=== PATIENT | female | born 1940 | race Caucasian/White ===

== ENCOUNTER 2019-09-07 16:29 | Inpatient (IN) ==
--- NOTE | 2019-09-07 17:02 | Emergency Department Note ---
Abdominal Pain HPI - General Chief Complaint: Abdominal Pain Stated Complaint: left upper abd pain Time Seen by Provider: 09/07/19 16:33 Source: patient Mode of arrival: ambulatory Limitations: no limitations - History of Present Illness HPI Narrative: 79-year-old female presents with left upper abdominal pain. Onset about 48 hours ago. She was seen here in the ER last night had an elevated lipase in the high 300s and was diagnosed with pancreatitis. She went home on clear liquids that she did not want to be admitted. States her pain is worse. And vomiting but no diarrhea. States she really has no appetite so she has not had much of anything. States she returns tonight because her pain is just getting worse instead of better. No fever or chills. No blood in her stool or emesis. - Related Data Home Medications Medication Instructions Recorded Confirmed Aspirin EC 81 mg PO DAILY 09/06/19 09/06/19 Atorvastatin [Lipitor] 20 mg PO DAILY 09/06/19 09/06/19 Celecoxib 200 mg PO BID 09/06/19 09/06/19 Escitalopram [Lexapro] 20 mg PO DAILY 09/06/19 09/06/19 Estradiol [Estrace] 1 mg PO DAILY 09/06/19 09/06/19 Levothyroxine [Synthroid] 100 mcg PO DAILY 09/06/19 09/06/19 Montelukast [Singular] 10 mg PO DAILY 09/06/19 09/06/19 Omeprazole [PriLOSEC] 20 mg PO DAILY PRN 09/06/19 09/06/19 amLODIPine [Norvasc] 5 mg PO DAILY 09/06/19 09/06/19 sitaGLIPtin PHOS/metFORMIN HCL 1 each PO QDAY 09/06/19 09/06/19 [Janumet Xr 50-500 mg Tablet] traZODone HCL [Trazodone HCl] 100 mg PO PRN PRN 09/06/19 09/06/19 Previous Rx's Medication Instructions Recorded traMADol [Ultram] 50 mg PO Q6HP PRN #10 tab 09/06/19 Allergies Allergy/AdvReac Type Severity Reaction Status Date / Time Sulfa (Sulfonamide AdvReac Intermediate RASH Verified 09/07/19 16:32 Antibiotics) [SULFA (SULFONAMIDE ANTIBIOTICS)] hydrocodone [HYDROCODONE] AdvReac Mild VOMITING Verified 09/07/19 16:32 Review of Systems All systems ED: reviewed and negative except as stated. Abdominal Pain PMH - Past Medical History Medical history: Reports: arthritis, DM, hyperlipidemia, hypertension Family history: Reports: no significant family history - Social History Smoking status: Never smoker Alcohol use: Reports: None Drug use: Reports: none Physical Exam Limitations: no limitations General appearance: alert, other (Extremely hard of hearing) Head: atraumatic, normocephalic, normal inspection Eye: Present: normal appearance. Absent: conjunctival injection ENT: Present: mucous membranes moist Chest: Present: symmetric chest wall rise Respiratory: Present: normal lung sounds bilaterally. Absent: respiratory distress, rales/crackles, wheezes, accessory muscle use Cardiovascular: Present: regular rate, normal heart sounds Abdominal: Present: soft, tenderness (Left upper quadrant), guarding (Left upper quadrant), normal bowel sounds. Absent: distention, rebound, rigidity, mass Extremities: Present: normal inspection Back: Absent: CVA tenderness (R), CVA tenderness (L) Neurological: Present: alert, oriented X3 Psychiatric: Present: normal affect, normal mood Skin: Present: warm, dry, intact, normal color. Absent: rash, hives, cyanosis, diaphoresis Course Course Narrative: @ [address] Avelar agrees to accept this patient. Vital Signs Temperature 98.0 F 09/07/19 16:29 Pulse Rate 88 09/07/19 16:29 Respiratory Rate 18 09/07/19 16:29 Blood Pressure 154/81 09/07/19 16:29 Pulse Oximetry (%) 97 09/07/19 16:29 Temperature 98.0 F 09/07/19 16:29 Pulse Rate 79 09/07/19 20:31 Respiratory Rate 18 09/07/19 16:29 Blood Pressure 142/88 09/07/19 20:31 Pulse Oximetry (%) 91 09/07/19 20:31 Abdominal Pain - Medical Records Medical records reviewed: Yes I reviewed the patient's medical records. - Lab Data Lab results reviewed: Yes I reviewed the patient's lab results. Result diagrams: 09/07/19 16:50 09/07/19 16:50 Lab Results 09/07/19 09/07/19 Range/Units 16:50 16:50 WBC 12.3 H (4.5-11.0) K/mcL RBC 5.04 (4.00-5.20) M/mcL Hgb 14.4 (12.0-15.0) g/dL Hct 43.9 (36.0-48.0) % MCV 87.1 (80.0-100.0) fL MCH 28.6 (26.0-34.0) pg MCHC 32.8 (31.0-36.0) g/dL RDW 13.5 (11.5-14.5) % Plt Count 227 (140-440) K/mcL MPV 11.4 H (7.4-10.4) fL Gran % 75.1 (38.0-78.0) % Lymph % (Auto) 16.2 (15.5-49.0) % [place] % (Auto) 7.6 (1.0-12.0) % Eos % (Auto) 0.7 (0.0-7.0) % Baso % (Auto) 0.4 (0.0-2.0) % Gran # 9.2 H (1.8-8.0) K/mcL Lymph # (Auto) 2.0 (1.5-4.8) K/mcL [place] # (Auto) 0.9 (0.1-0.9) K/mcL Eos # (Auto) 0.1 (0.0-0.7) K/mcL Baso # (Auto) 0.1 (0.0-0.3) K/mcL Sodium 134 (133-145) mmol/L Potassium 3.1 L (3.3-5.1) mmol/L Chloride 97 (96-108) mmol/L Carbon Dioxide 20 L (22-30) mmol/L Anion Gap 17.0 H (8-16) BUN 11 (8-23) mg/dl Creatinine 0.7 (0.6-1.1) mg/dl GFR Calculation 81 Glucose 152 H (70-105) mg/dL Calcium 8.8 (8.6-10.4) mg/dl Total Bilirubin 1.0 (0.0-1.0) mg/dL AST 12 (0-37) U/l ALT 10 (0-40) U/l Alkaline Phosphatase 84 (39-117) U/L Total Protein 7.2 (5.9-8.4) gm/dL Albumin 3.7 (3.2-5.2) gm/dL Globulin 3.5 (2.2-3.7) gm/dL Albumin/Globulin Ratio 1.1 (1.0-2.3) Amylase 209 H (28-100) U/L Lipase 156 H (7-60) U/L - Radiology Data Radiology results reviewed: Yes I reviewed the patient's radiology results. Disposition Pt seen by WRECK[facility] OPERATOR/PA only: Yes Clinical Impression: Pancreatitis, Abdominal pain Disposition: Xfer As Outpt/Obs ([facility]) Condition: Fair Referrals: Rakan Pham MD [Primary Care Provider] - Time of Disposition: 21:23
[2019-09-07] MEDS ORDERED: HYDROmorphone 2 MG/ML VIAL IV PRN ×2 (17:03→22:06)
[2019-09-07] MEDS ORDERED: ONDANSETRON 4 MG/2 ML VIAL IV ONE (17:03)
[2019-09-07] MEDS: 0.9 % SODIUM CHLORIDE 1,000 ML IV SCH ×3 (17:04→21:00)
[2019-09-07 17:45] LABS: Basophils # (Auto) 0.1 K/mcL (0.0-0.3); Basophils % (Auto) 0.4 % (0.0-2.0); Eosinophils # (Auto) 0.1 K/mcL (0.0-0.7); Eosinophils % (Auto) 0.7 % (0.0-7.0); Granulocytes % (Auto) 75.1 % (38.0-78.0); Hematocrit 43.9 % (36.0-48.0); Hemoglobin 14.4 g/dL (12.0-15.0); Lymphocytes % (Auto) 16.2 % (15.5-49.0); Mean Cell Volume 87.1 fL (80.0-100.0); Mean Corpuscular HGB Conc 32.8 g/dL (31.0-36.0); Mean Platelet Volume 11.4 fL (7.4-10.4); Monocytes # (Auto) 0.9 K/mcL (0.1-0.9); Monocytes % (Auto) 7.6 % (1.0-12.0); Platelet Count 227 K/mcL (140-440); RBC 5.04 M/mcL (4.00-5.20); Red Cell Distribution Width 13.5 % (11.5-14.5); WBC 12.3 K/mcL (4.5-11.0)
[2019-09-07 18:05] LABS: ALT/SGPT 10 U/l (0-40); AST/SGOT 12 U/l (0-37); Albumin 3.7 gm/dL (3.2-5.2); Albumin/Globulin Ratio 1.1 (1.0-2.3); Alkaline Phosphatase 84 U/L (39-117); Amylase 209 U/L (28-100); Blood Urea Nitrogen 11 mg/dl (8-23); Calcium 8.8 mg/dl (8.6-10.4); Carbon Dioxide 20 mmol/L (22-30); Chloride 97 mmol/L (96-108); Globulin 3.5 gm/dL (2.2-3.7); Glomerular Filtration Rate 81; Glucose 152 mg/dL (70-105)
--- NOTE | 2019-09-07 18:12 | Ultrasound Report ---
CLINICAL INFORMATION: Left upper quadrant pain TECHNIQUE: Grayscale and color flow Doppler spectral imaging COMPARISON: None. FINDINGS: Negative gallbladder. No cholelithiasis. No gallbladder wall thickening or pericholecystic fluid. No dilated bile ducts. Common bile duct measures 4 mm. Liver is negative. No focal intrahepatic abnormalities. The liver may be mildly echogenic. Liver contour is smooth. Visualized portions of the pancreas are negative. Spleen is not evaluated. Normal hepatopedal portal venous flow. Right kidney measures 9.6 x 5.2 x 4.4 cm. There is a 9 mm lower pole cyst. No solid mass. No hydronephrosis. IMPRESSION: Negative limited abdominal ultrasound Interpreted and Authenticated by: Des Thomas 09/07/19
--- NOTE | 2019-09-07 21:37 | Cat Scan Report ---
CLINICAL INFORMATION: Left upper quadrant pain. Elevated white blood cell count COMPARISON: None. TECHNIQUE: Axial images were obtained through the abdomen and pelvis. Sagittally and coronally reformatted images. 80 mL Isovue 370 injected intravenously. Oral contrast material is given FINDINGS: Lung bases:12 mm mass at the right lung base. This may be focal atelectasis but is suspicious for malignancy. Routine chest CT scan is recommended to evaluate for other pulmonary parenchymal nodules. Short-term follow-up examination will also be appropriate. There is no pleural fluid. No pericardial fluid There is atherosclerotic disease with coronary artery calcification Liver:Negative. No focal mass. Liver contour is smooth. There is no evidence for cirrhosis. Gallbladder, billary:No calcified gallstones. No dilated bile ducts. Common bile measures 4 mm Spleen:Low-density lesion consistent with chronic infarction. Spleen is otherwise negative. No splenomegaly. Normal enhancement of the splenic and portal vein Pancreas:There is infiltration of the peripancreatic fat consistent with edema. Pancreas is atrophic. No pancreatic mass. No duct dilatation. Appearance is consistent with pancreatitis. Correlation with serum enzymes recommended. There is no pseudocyst. No abscess. Adrenal glands:Negative Kidneys, ureters, bladder:There are small renal cysts. No solid renal mass. There is no hydronephrosis. There is no hydroureter. No bladder calculi Gastrointestinal:There is sigmoid diverticulosis. No evidence for diverticulitis. No colonic mass identified. Appendix is negative. Small bowel is negative. Vascular:There is calcification of the abdominal aorta. No abdominal aortic aneurysm there is calcification at the origin of the celiac trunk and superior mesenteric artery. There is probable stenosis. Lymphatic:No retroperitoneal adenopathy. No mesenteric adenopathy Mesentery, peritoneum:No free intraperitoneal fluid. No intra-abdominal abscess. No pneumoperitoneum Reproductive:Uterus is not visualized and has probably been removed. No adnexal mass Musculoskeletal:There is degenerative disc disease in the lower lumbar spine. No compression fractures. No sacral or pelvic fracture. Hips are negative. No abdominal wall or inguinal hernia Examination was initially interpreted by [facility] IMPRESSION: 1. 12 mm mass at the right lung base. Recommend chest CT scan and follow-up examination. 2. Infiltration of peripancreatic fat consistent with pancreatitis. No pseudocyst or abscess. No pancreatic mass 3. Atherosclerotic disease. 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 Sigmoid diverticulosis. No evidence for diverticulitis The exam was performed using radiation dose optimization techniques including, but not limited to, automated exposure control, adjustment of the mA and/or kV according to patient size and use of iterative reconstruction technique. Interpreted and Authenticated by: Des Thomas 09/07/19
--- NOTE | 2019-09-07 22:02 | Internal Med History&Physical ---
Medical - H&P: HPI Patient information: Note initiated : 09/07/19 at 10:00 pm Service Date, if different from initiated Date: [] Patient: Blossom Craig 79 y/o F admitted on for left upper abd pain. Chief Complaint: [] History of present illness: This is an 79-year-old female with a history of essential hypertension, diabetes, hyperlipidemia, chronic pain was brought to the ER because of severe abdominal pain. She was evaluated in the ER her lab work-up was unremarkable except lipase elevated around 200 at the upper limit of 60 and she has severe epigastric tenderness on examination underwent CT scan which was unremarkable for an acute findings and she also had a history of nausea and 1 episode of vomiting. No fever no chills no chest pain. Discussed with her this morning about admitting but patient want to be discharged home went home continued having severe pain and was brought her back to the ER. The second time she underwent an ultrasound which was unremarkable for any acute gallbladder patho logy. Patient reported drinking more than unusual amount of wine during the last few days and especially on . She also takes Janumet which can also cause pancreatitis. She also takes estradiol and celecoxib both can cause pancreatitis. Discussed with the patient and we will get RID OFF these 3 medicines and she agreed stop drinking alcohol. - Constitutional Constitutional: Present: anorexia, chills, lethargy, malaise, weakness - Cardiovascular Cardiovascular: Absent: chest pain, chest pain at rest, chest pain with activity, claudication, diaphoresis, dyspnea, dyspnea on exertion, edema - Respiratory Respiratory: Absent: cough, dyspnea, hemoptysis, dyspnea on exertion, wheezing, snoring - Gastrointestinal Gastrointestinal: Present: abdominal pain, belching, bloating, change in bowel habits, dyspepsia. Absent: change in stool character, coffee ground emesis, constipation, diarrhea - Genitourinary Genitourinary: Absent: dysuria, flank pain, genital lesions, genital pruritis - Neurological Neurological: Absent: disequilibrium, dizziness, focal weakness, frequent falls, headache(s) - Psychiatric Psychiatric: Absent: anhedonia, anxiety, auditory hallucinations, behavioral changes, change in appetite, change in libido Medical - H&P: PMH Medical history: Essential hypertension Diabetes Hyperlipidemia Thyroid surgery Surgical history: Thyroidectomy Uterine fibroid and hysterectomy Social history: Social History No Social History Section defined History of alcoholism-more than usual according to the family and patient No history of smoking or any other recreational drugs Medical - H&P: Meds Home Medications Medication Instructions Recorded Confirmed Type Aspirin EC 81 mg PO DAILY 09/06/19 09/07/19 History Atorvastatin [Lipitor] 20 mg PO DAILY 09/06/19 09/07/19 History Celecoxib 200 mg PO BID 09/06/19 09/07/19 History Escitalopram [Lexapro] 20 mg PO DAILY 09/06/19 09/07/19 History Estradiol [Estrace] 1 mg PO DAILY 09/06/19 09/07/19 History Levothyroxine [Synthroid] 100 mcg PO DAILY 09/06/19 09/07/19 History Montelukast [Singular] 10 mg PO DAILY 09/06/19 09/07/19 History Omeprazole [PriLOSEC] 20 mg PO DAILY PRN 09/06/19 09/07/19 History amLODIPine [Norvasc] 5 mg PO DAILY 09/06/19 09/07/19 History sitaGLIPtin PHOS/metFORMIN HCL 1 each PO QDAY 09/06/19 09/07/19 History [Janumet Xr 50-500 mg Tablet] traMADol [Ultram] 50 mg PO Q6HP PRN #10 tab 09/06/19 09/07/19 Rx traZODone HCL [Trazodone HCl] 100 mg PO PRN PRN 09/06/19 09/07/19 History Vitamin D3 1 tab PO QDAY 09/07/19 09/07/19 History Allergies Allergy/AdvReac Type Severity Reaction Status Date / Time Sulfa (Sulfonamide AdvReac Intermediate RASH Verified 09/07/19 16:32 Antibiotics) [SULFA (SULFONAMIDE ANTIBIOTICS)] hydrocodone [HYDROCODONE] AdvReac Mild VOMITING Verified 09/07/19 16:32 Medical - H&P: Exam - Constitutional Vitals: Temp Pulse Resp BP Pulse Ox 98.0 F 88 16 140/85 98 09/07/19 16:29 09/07/19 21:52 09/07/19 21:52 09/07/19 21:52 09/07/19 21:52 General appearance: cooperative, moderate distress, obese - Head Head exam: Present: atraumatic, normal inspection - Expanded Head Exam Head exam: Absent: abrasion, Fish's sign, contusion - Eye Eye exam: Absent: conjunctival injection, nystagmus, periorbital swelling - ENT ENT exam: Present: mucous membranes dry, normal exam, normal external ear exam - Expanded ENT Exam Ear exam: Absent: auricular hematoma, auricular trauma, external canal tenderness - Neck Neck exam: Present: full ROM. Absent: lymphadenopathy, meningismus - Respiratory Respiratory exam: Present: normal respiratory exam, accessory muscle use - Cardiovascular Cardiovascular exam: Present: normal rate and rhythm - GI/Abdominal GI/Abdominal exam: Present: normal bowel sounds, distended, tenderness (Severe epigastric tenderness) - Neurological Exam Neurological exam: Present: alert, oriented X3. Absent: abnormal gait, motor sensory deficit Medical - H&P: Reslt - Labs CBC & Chem 7: 09/07/19 16:50 09/07/19 16:50 Labs: Short CBC 09/07/19 Range/Units 16:50 WBC 12.3 H (4.5-11.0) K/mcL Hgb 14.4 (12.0-15.0) g/dL Hct 43.9 (36.0-48.0) % Plt Count 227 (140-440) K/mcL BMP 09/07/19 16:50 Sodium 134 Potassium 3.1 L Chloride 97 Carbon Dioxide 20 L BUN 11 Creatinine 0.7 Glucose 152 H Calcium 8.8 Liver Function 09/07/19 Range/Units 16:50 Total Bilirubin 1.0 (0.0-1.0) mg/dL AST 12 (0-37) U/l ALT 10 (0-40) U/l Alkaline Phosphatase 84 (39-117) U/L Albumin 3.7 (3.2-5.2) gm/dL Medical - H&P: A/P - Narrative A/P Narrative: Acute pancreatitis probable alcohol and/or medication induced Patient was on Janumet, celecoxib and estradiol can precipitate pancreatitis Patient is also drinking more than usual amount of wine with the and season Plan n.p.o. and will start on clear liquid diet Pain management with morphine 1 mg every 2 hours IV fluid lactated Ringer's 100 mils per hour Type 2 diabetes We will monitor her blood glucose Sliding scale insulin We will stop the Janumet and will continue the metformin alone Check A1c level Essential hypertension Continue amlodipine Alcoholism Patient drinks wine more than unusual sometimes Patient agreed to stop alcohol completely DVT prophylaxis-subcu heparin CODE STATUS-full code Expected length of stay-1-2 midnights
[2019-09-07] MEDS ORDERED: ONDANSETRON 4 MG/2 ML VIAL IV PRN (22:06)
[2019-09-07] MEDS ORDERED: traZODone HCL 50 MG TABLET PO PRN (22:06)
[2019-09-07] MEDS: LACTATED RINGERS 1,000 ML IV SCH (22:24)
[2019-09-07 22:47] LABS: C-Reactive Protein 9.7 mg/dl (0.0-0.8)
[2019-09-07] MEDS ORDERED: traZODone HCL 50 MG TABLET ONE (23:24)
[2019-09-08 01:01] LABS: Hemoglobin A1C 6.6 % HGB (4.0-6.0)
[2019-09-08] MEDS ORDERED: HYDROmorphone 2 MG/ML VIAL ONE (04:32)
[2019-09-08 05:33] LABS: Basophils # (Auto) 0 K/mcL (0.0-0.3); Basophils % (Auto) 0.2 % (0.0-2.0); Eosinophils # (Auto) 0.2 K/mcL (0.0-0.7); Eosinophils % (Auto) 1.4 % (0.0-7.0); Granulocytes % (Auto) 75.2 % (38.0-78.0); Hematocrit 42.4 % (36.0-48.0); Hemoglobin 13.6 g/dL (12.0-15.0); Lymphocytes # (Auto) 2.1 K/mcL (1.5-4.8); Lymphocytes % (Auto) 15.1 % (15.5-49.0); Mean Cell Volume 88.3 fL (80.0-100.0); Mean Corpuscular HGB Conc 32.2 g/dL (31.0-36.0); Mean Platelet Volume 11.2 fL (7.4-10.4); Monocytes # (Auto) 1.1 K/mcL (0.1-0.9); Monocytes % (Auto) 8.1 % (1.0-12.0); Platelet Count 216 K/mcL (140-440); Red Cell Distribution Width 13.9 % (11.5-14.5); WBC 13.7 K/mcL (4.5-11.0)
[2019-09-08] MEDS: 0.9 % SODIUM CHLORIDE 10 ML SYRINGE IV SCH ×3 (06:12→22:04)
[2019-09-08] MEDS: LACTATED RINGERS 1,000 ML IV SCH ×2 (08:27→19:20)
[2019-09-08] MEDS: HEPARIN 5,000 UNIT/ML VIAL SQ SCH ×2 (08:27→22:04)
[2019-09-08] MEDS: DOCUSATE SODIUM 100 MG CAPSULE PO SCH ×2 (08:28→22:04)
[2019-09-08] MEDS: HYDROmorphone 2 MG/ML VIAL IV PRN ×4 (10:49→23:48)
[2019-09-08] MEDS: POTASSIUM CHLORIDE 20 MEQ TABLET PO SCH ×2 (10:50→17:47)
--- NOTE | 2019-09-08 20:17 | Internal Med Progress Note ---
Medical - PN: Subj Patient information: Note initiated : 09/08/19 at 8:16 pm Service Date, if different from initiated Date: [] Patient: Blossom Craig 79 y/o F admitted on 09/07/19 for left upper abd pain. Chief Complaint: [] Interval history: This is an 79-year-old female admitted with acute pancreatitis possibly precipitated by alcohol and/or her medications. She was kept on n.p.o. and advance her to clear liquid diet her pain is controlled with the Dilaudid IV electrolytes has been monitored IV fluid resuscitation with LR 1216-patient's case scenario has been discussed with the family son and explained to them about the possible delayed complication and's recurrence of pancreatitis. I strongly recommend them to stop Januvia and we can continue the Metformin alone as her A1c is 6.6. I strongly recommend stop celecoxib as well. Patient is on estradiol which can rarely cause pancreatitis but this can be reconsidered when she is improved. Pertinent ROS: Review of systems General-in distress due to pain Abdomen-continued having nausea and pain Respiratory-no shortness of breath no cough CVS-no chest pain - Constitutional Vitals: Vital Signs Temp Pulse Resp BP Pulse Ox 99.7 F H 87 18 138/63 91 09/08/19 16:00 09/08/19 16:00 09/08/19 16:00 09/08/19 16:00 09/08/19 16:00 Period Temp Pulse Resp BP Sys/Barba Pulse Ox Last 24 Hr 97.4 F-99.7 F 77-88 16-18 138-169/63-88 91-98 Intake and Output 09/08/19 09/08/19 09/08/19 05:59 13:59 21:59 Intake Total 100 1120 1100 Output Total 700 400 Balance -710 881 1801 Weight 153 lb 153 lb Patient Weight 09/09/19 05:59 Weight 153 lb Intake & Output: Intake & Output 09/08/19 09/08/19 09/08/19 05:59 13:59 21:59 Intake Total 100 1120 1100 Output Total 700 400 Balance -595 153 7375 Weight 153 lb 153 lb Intake: IV 1000 1000 Lactated Ringers 1,000 ml @ 100 1000 1000 mls/hr IV .Q10H PRIYA Rx#: [id number] Oral 100 120 100 Output: Void Amount 700 400 Other: Meal Breakfast Percent of Meal Consumed 75% Feeding Ability Independent Urine Appearance Clear Clear Urine Color Bright Yellow Bright Yellow Stool Size Moderate Stool Color Brown Stool Consistency Loose # Bowel Movements 1 - Head Head exam: Present: atraumatic, normal inspection, normocephalic - Eye Eye exam: Present: normal appearance Pupils: Absent: fixed, irregular - ENT ENT exam: Present: mucous membranes dry, normal exam - Respiratory Respiratory exam: Present: normal respiratory exam. Absent: accessory muscle use, chest wall tenderness, decreased breath sounds - Cardiovascular Cardiovascular exam: Present: normal rate and rhythm. Absent: bradycardia, clicks, diastolic murmur, gallop - GI/Abdominal GI/Abdominal exam: Present: tenderness. Absent: bruit, diminished bowel sounds, mass, organomegaly - Neurological Exam Neurological exam: Present: alert, CN II-XII intact, oriented X3, reflexes normal. Absent: motor sensory deficit Medical - PN: Obj Da - Labs CBC & Chem 7: 09/08/19 04:00 09/07/19 16:50 Labs: Abnormal Lab Results 09/08/19 09/07/19 09/07/19 04:00 16:50 16:50 WBC 13.7 H MPV 11.2 H Lymph % (Auto) 15.1 L Gran # 10.3 H [place] # (Auto) 1.1 H Potassium 3.1 L Carbon Dioxide 20 L Anion Gap 17.0 H Glucose 152 H Hemoglobin A1c 6.6 H C-Reactive Protein 9.7 H Amylase 209 H Lipase 156 H 09/07/19 16:50 WBC 12.3 H MPV 11.4 H Lymph % (Auto) Gran # 9.2 H [place] # (Auto) Potassium Carbon Dioxide Anion Gap Glucose Hemoglobin A1c C-Reactive Protein Amylase Lipase Meds: Medications Docusate Sodium (Colace) 100 mg PO BID [facility] Last Admin: 09/08/19 08:28 Dose: 100 mg Documented by: Heparin Sodium (Porcine) (Heparin) 5,000 unit SQ Q12 [facility] Last Admin: 09/08/19 08:27 Dose: 5,000 unit Documented by: Hydromorphone HCl (Dilaudid) 0.25 mg IV Q2HP PRN; Protocol PRN Reason: Per Pain Protocol Last Admin: 09/08/19 15:51 Dose: 0.25 mg Documented by: Lactated Ringer's (Lactated Ringers) 1,000 mls @ 100 mls/hr IV .Q10H PRIYA Last Admin: 09/08/19 19:20 Dose: 100 mls/hr Documented by: Ondansetron HCl (Zofran) 4 mg IV Q6HP PRN PRN Reason: Nausea And Vomiting Potassium Chloride (Kdur) 40 meq PO BIDCC PRIYA Stop: 09/09/19 17:31 Last Admin: 09/08/19 17:47 Dose: 40 meq Documented by: Senna (Senokot) 2 tab PO HS PRIYA Sodium Chloride (Saline Flush) 10 ml IV Q8 PRIYA Last Admin: 09/08/19 15:51 Dose: 10 ml Documented by: Trazodone HCl (Desyrel) 25 mg PO HSP PRN PRN Reason: Insomnia Last Admin: 09/07/19 23:26 Dose: 25 mg Documented by: Medical - PN: A/P - Time Spent With Patient Total time spent is greater than 50% in coordination of care (as documented) at patient's floor/unit and/or counseling patient: - Narrative A/P Narrative: Acute pancreatitis probable alcohol and/or medication induced Patient was on Janumet, celecoxib and estradiol can precipitate pancreatitis Patient is also drinking more than usual amount of wine with the and season Advance her to clear liquid diet and will advance to full liquid if she continues to improve Pain management with Dilaudid IV fluid resuscitation lactated Ringer Type 2 diabetes We will monitor her blood glucose Sliding scale insulin We will stop the Janumet and will continue the metformin alone A1c level 6.6 and I think her diabetes can be managed with metformin alone and follow-up with the primary care Essential hypertension Continue amlodipine Alcoholism Patient drinks wine more than unusual sometimes Patient agreed to stop alcohol completely DVT prophylaxis-subcu heparin CODE STATUS-full code Expected length of stay-1 midnights
[2019-09-08] MEDS: SENNOSIDES 1 TABLET PO SCH (22:04)
[2019-09-09] MEDS: HYDROmorphone 2 MG/ML VIAL IV PRN ×8 (01:58→22:28)
[2019-09-09] MEDS: LACTATED RINGERS 1,000 ML IV SCH ×3 (04:53→23:16)
[2019-09-09] MEDS: POTASSIUM CHLORIDE 20 MEQ TABLET PO SCH ×2 (08:39→17:26)
[2019-09-09] MEDS: DOCUSATE SODIUM 100 MG CAPSULE PO SCH ×2 (08:39→21:18)
[2019-09-09] MEDS: HEPARIN 5,000 UNIT/ML VIAL SQ SCH ×2 (08:39→21:18)
[2019-09-09] MEDS: 0.9 % SODIUM CHLORIDE 10 ML SYRINGE IV SCH ×3 (08:40→21:19)
--- NOTE | 2019-09-09 09:38 | Internal Med Progress Note ---
Medical - PN: Subj Patient information: Note initiated : 09/09/19 at 9:36 am Service Date, if different from initiated Date: [] Patient: Blossom Craig 79 y/o F admitted on 09/07/19 for left upper abd pain. Chief Complaint: [] Interval history: This is an 79-year-old female admitted with acute pancreatitis possibly precipitated by alcohol and/or her medications. She was kept on n.p.o. and advance her to clear liquid diet her pain is controlled with the Dilaudid IV electrolytes has been monitored IV fluid resuscitation with LR 09/08-patient's case scenario has been discussed with the family son and explained to them about the possible delayed complication and's recurrence of pancreatitis. I strongly recommend them to stop Januvia and we can continue the Metformin alone as her A1c is 6.6. I strongly recommend stop celecoxib as well. Patient is on estradiol which can rarely cause pancreatitis but this can be reconsidered when she is improved 09/09 -she continued having pain especially when she ate so we will keep her on full liquid diet and continue IV pain medicine and will start her on tramadol 50 every 8 hourly. Starting her on sliding scale insulin Pertinent ROS: Review of systems General-in distress due to pain Abdomen-continued having nausea and pain Respiratory-no shortness of breath no cough CVS-no chest pain - Constitutional Vitals: Vital Signs Temp Pulse Resp BP Pulse Ox 97.9 F 89 16 137/64 92 09/09/19 04:53 09/09/19 04:53 09/09/19 04:53 09/09/19 04:53 09/09/19 04:53 Period Temp Pulse Resp BP Sys/Barba Pulse Ox Last 24 Hr 97.4 F-99.7 F 77-89 16-18 137-150/63-74 90-94 Intake and Output 09/08/19 09/09/19 09/09/19 21:59 05:59 13:59 Intake Total 1460 1405 Output Total 1100 Balance 1460 305 Weight 160 lb Intake & Output: Intake & Output 09/08/19 09/09/19 09/09/19 21:59 05:59 13:59 Intake Total 1460 1405 Output Total 1100 Balance 1460 305 Weight 160 lb Intake: IV 1000 955 Lactated Ringers 1,000 ml @ 100 1000 955 mls/hr IV .Q10H [facility] Rx#: [id number] Oral 460 450 Output: Void Amount 1100 Other: Meal Dinner Percent of Meal Consumed 50% Feeding Ability Independent Urine Appearance Clear Urine Color Dark Yellow Urine Odor Normal - Head Head exam: Present: atraumatic, normal inspection - Eye Eye exam: Present: conjunctival injection. Absent: nystagmus - ENT ENT exam: Present: mucous membranes dry - Neck Neck exam: Present: normal inspection. Absent: lymphadenopathy - Respiratory Respiratory exam: Present: normal respiratory exam, decreased breath sounds. Absent: accessory muscle use, chest wall tenderness, respiratory distress - Cardiovascular Cardiovascular exam: Present: normal rate and rhythm. Absent: bradycardia, diastolic murmur, gallop - GI/Abdominal GI/Abdominal exam: Present: normal bowel sounds, distended, rebound, tenderness - Neurological Exam Neurological exam: Present: alert, oriented X3, reflexes normal. Absent: motor sensory deficit Medical - PN: Obj Da - Labs CBC & Chem 7: 09/08/19 04:00 09/07/19 16:50 Labs: Abnormal Lab Results 09/08/19 09/07/19 09/07/19 04:00 16:50 16:50 WBC 13.7 H MPV 11.2 H Lymph % (Auto) 15.1 L Gran # 10.3 H Bulloch # (Auto) 1.1 H Potassium 3.1 L Carbon Dioxide 20 L Anion Gap 17.0 H Glucose 152 H Hemoglobin A1c 6.6 H C-Reactive Protein 9.7 H Amylase 209 H Lipase 156 H 09/07/19 16:50 WBC 12.3 H MPV 11.4 H Lymph % (Auto) Gran # 9.2 H Bulloch # (Auto) Potassium Carbon Dioxide Anion Gap Glucose Hemoglobin A1c C-Reactive Protein Amylase Lipase Meds: Medications Diagnostic Test (Pha) (Accu-Chek) 1 each FS ACHS [facility] Docusate Sodium (Colace) 100 mg PO BID [facility] Last Admin: 09/09/19 08:39 Dose: 100 mg Documented by: Heparin Sodium (Porcine) (Heparin) 5,000 unit SQ Q12 [facility] Last Admin: 09/09/19 08:39 Dose: 5,000 unit Documented by: Hydromorphone HCl (Dilaudid) 0.25 mg IV Q2HP PRN; Protocol PRN Reason: Per Pain Protocol Last Admin: 09/09/19 08:39 Dose: 0.25 mg Documented by: Lactated Ringer's (Lactated Ringers) 1,000 mls @ 100 mls/hr IV .Q10H [facility] Last Admin: 09/09/19 04:53 Dose: 100 mls/hr Documented by: Insulin Human Lispro (Humalog) 0 unit SQ ACHS [facility]; Protocol Ondansetron HCl (Zofran) 4 mg IV Q6HP PRN PRN Reason: Nausea And Vomiting Potassium Chloride (Kdur) 40 meq PO BIDCC [facility] Stop: 09/09/19 17:31 Last Admin: 09/09/19 08:39 Dose: 40 meq Documented by: Senna (Senokot) 2 tab PO HS [facility] Last Admin: 09/08/19 22:04 Dose: Not Given Documented by: Sodium Chloride (Saline Flush) 10 ml IV Q8 [facility] Last Admin: 09/09/19 08:40 Dose: Not Given Documented by: Tramadol HCl (Ultram) 50 mg PO Q8H [facility] Trazodone HCl (Desyrel) 25 mg PO HSP PRN PRN Reason: Insomnia Last Admin: 09/07/19 23:26 Dose: 25 mg Documented by: Medical - PN: A/P - Time Spent With Patient Total time spent is greater than 50% in coordination of care (as documented) at patient's floor/unit and/or counseling patient: - Narrative A/P Narrative: Acute pancreatitis probable alcohol and/or medication induced Patient was on Janumet, celecoxib and estradiol can precipitate pancreatitis Patient is also drinking more than usual amount of wine with the and season Advance her to clear liquid diet and will advance to full liquid if she continues to improve Pain management with Dilaudid and added tramadol 50 every 8 hourly IV fluid resuscitation lactated Ringer She is on full liquid diet Type 2 diabetes We will monitor her blood glucose Sliding scale insulin We will stop the Janumet and will continue the metformin alone A1c level 6.6 and I think her diabetes can be managed with metformin alone and follow-up with the primary care Essential hypertension Continue amlodipine Alcoholism Patient drinks wine more than unusual sometimes Patient agreed to stop alcohol completely DVT prophylaxis-subcu heparin CODE STATUS-full code Expected length of stay-1 midnights
[2019-09-09] MEDS: traMADol 50 MG TABLET PO SCH ×2 (09:52→17:30)
[2019-09-09] MEDS: INSULIN LISPRO 1 UNIT/0.01 ML UNIT SQ SCH ×3 (11:33→21:19)
[2019-09-09] MEDS: SENNOSIDES 1 TABLET PO SCH (21:19)
[2019-09-10] MEDS: HYDROmorphone 2 MG/ML VIAL IV PRN ×6 (00:13→23:59)
[2019-09-10] MEDS: traMADol 50 MG TABLET PO SCH ×3 (02:10→17:31)
[2019-09-10] MEDS: 0.9 % SODIUM CHLORIDE 10 ML SYRINGE IV SCH ×3 (05:00→21:02)
[2019-09-10] MEDS: INSULIN LISPRO 1 UNIT/0.01 ML UNIT SQ SCH ×4 (07:05→21:03)
[2019-09-10] MEDS: HEPARIN 5,000 UNIT/ML VIAL SQ SCH ×2 (09:02→21:01)
[2019-09-10] MEDS: DOCUSATE SODIUM 100 MG CAPSULE PO SCH ×2 (09:02→20:59)
[2019-09-10] MEDS ORDERED: DEXTROSE 31 GM ORAL.SUSP PO PRN (11:44)
[2019-09-10] MEDS ORDERED: DEXTROSE 50% 50 ML VIAL IV PRN (11:44)
--- NOTE | 2019-09-10 11:48 | Internal Med Progress Note ---
Medical - PN: Subj Patient information: Note initiated : 09/10/19 at 11:47 am Service Date, if different from initiated Date: [] Patient: Blossom Craig 79 y/o F admitted on 09/07/19 for left upper abd pain. Chief Complaint: [] Interval history: This is an 79-year-old female admitted with acute pancreatitis possibly precipitated by alcohol and/or her medications. She was kept on n.p.o. and advance her to clear liquid diet her pain is controlled with the Dilaudid IV electrolytes has been monitored IV fluid resuscitation with LR 09/08-patient's case scenario has been discussed with the family son and explained to them about the possible delayed complication and's recurrence of pancreatitis. I strongly recommend them to stop Januvia and we can continue the Metformin alone as her A1c is 6.6. I strongly recommend stop celecoxib as well. Patient is on estradiol which can rarely cause pancreatitis but this can be reconsidered when she is improved 09/09 -she continued having pain especially when she ate so we will keep her on full liquid diet and continue IV pain medicine and will start her on tramadol 50 every 8 hourly. Starting her on sliding scale insulin 09/10-patient continued having pain requiring IV pain medicine. We continue tramadol and Dilaudid as needed. Discussed with the patient and family and decided to continue full liquid diet and will keep her another day if she continues to improve then can be discharged tomorrow. Physical therapy evaluation before discharge. Pertinent ROS: Review of systems General-in distress due to pain Abdomen-continued having nausea and pain Respiratory-no shortness of breath no cough CVS-no chest pain - Constitutional Vitals: Vital Signs Temp Pulse Resp BP Pulse Ox 96.5 F L 97 H 16 142/83 97 09/10/19 08:00 09/10/19 08:00 09/10/19 08:00 09/10/19 08:00 09/10/19 08:00 Period Temp Pulse Resp BP Sys/Barba Pulse Ox Last 24 Hr 96.5 F-99.5 F 80-97 16-18 119-168/53-83 90-97 Intake and Output 09/09/19 09/10/19 09/10/19 21:59 05:59 13:59 Intake Total 1567 872 Output Total 700 750 Balance 1567 172 -750 Weight 154 lb 8 oz Intake & Output: Intake & Output 09/09/19 09/10/19 09/10/19 21:59 05:59 13:59 Intake Total 1567 872 Output Total 700 750 Balance 1567 172 -750 Weight 154 lb 8 oz Intake: IV 967 872 Lactated Ringers 1,000 ml @ 100 967 872 mls/hr IV .Q10H [facility] Rx#: [id number] Oral 600 0 Output: Void Amount 700 750 Other: Urine Appearance Clear Urine Color Bright Yellow Urine Odor Normal General appearance: moderate distress, obese - Head Head exam: Present: atraumatic, normal inspection, normocephalic - Eye Eye exam: Present: normal appearance. Absent: periorbital swelling, periorbital tenderness - ENT ENT exam: Present: mucous membranes dry, normal exam - Respiratory Respiratory exam: Present: normal respiratory exam. Absent: accessory muscle use, chest wall tenderness, decreased breath sounds, prolonged expiratory phase, respiratory distress - Cardiovascular Cardiovascular exam: Present: normal rate and rhythm. Absent: bradycardia, clicks, diastolic murmur, gallop - GI/Abdominal GI/Abdominal exam: Present: normal bowel sounds, distended, guarding, tenderness - Neurological Exam Neurological exam: Present: alert, oriented X3, reflexes normal. Absent: motor sensory deficit Medical - PN: Obj Da - Labs CBC & Chem 7: 09/08/19 04:00 09/07/19 16:50 Labs: Abnormal Lab Results 09/08/19 09/07/19 09/07/19 04:00 16:50 16:50 WBC 13.7 H MPV 11.2 H Lymph % (Auto) 15.1 L Gran # 10.3 H Scurry # (Auto) 1.1 H Potassium 3.1 L Carbon Dioxide 20 L Anion Gap 17.0 H Glucose 152 H Hemoglobin A1c 6.6 H C-Reactive Protein 9.7 H Amylase 209 H Lipase 156 H 09/07/19 16:50 WBC 12.3 H MPV 11.4 H Lymph % (Auto) Gran # 9.2 H Scurry # (Auto) Potassium Carbon Dioxide Anion Gap Glucose Hemoglobin A1c C-Reactive Protein Amylase Lipase Meds: Medications Dextrose (Dextrose 50%) 0 ml IV UD PRN PRN Reason: Hypoglycemia Diagnostic Test (Pha) (Accu-Chek) 1 each FS ACHS [facility] Last Admin: 09/10/19 11:27 Dose: 1 each Documented by: Diagnostic Test (Pha) (Accu-Chek) 1 each FS [facility] Docusate Sodium (Colace) 100 mg PO BID [facility] Last Admin: 09/10/19 09:02 Dose: 100 mg Documented by: Glucose (Insta-Glucose) 15 gm PO PRN PRN PRN Reason: Hypoglycemia Heparin Sodium (Porcine) (Heparin) 5,000 unit SQ Q12 [facility] Last Admin: 09/10/19 09:02 Dose: 5,000 unit Documented by: Hydromorphone HCl (Dilaudid) 0.25 mg IV Q2HP PRN; Protocol PRN Reason: Per Pain Protocol Last Admin: 09/10/19 07:02 Dose: 0.25 mg Documented by: Insulin Human Lispro (Humalog) 0 unit SQ [facility]; Protocol Last Admin: 09/10/19 11:38 Dose: 1 units Documented by: Insulin Human Lispro (Humalog) 0 unit SQ [facility]; Protocol Ondansetron HCl (Zofran) 4 mg IV Q6HP PRN PRN Reason: Nausea And Vomiting Last Admin: 09/09/19 16:09 Dose: 4 mg Documented by: Senna (Senokot) 2 tab PO HS [facility] Last Admin: 09/09/19 21:19 Dose: Not Given Documented by: Sodium Chloride (Saline Flush) 10 ml IV Q8 [facility] Last Admin: 09/10/19 05:00 Dose: Not Given Documented by: Tramadol HCl (Ultram) 50 mg PO Q8H [facility] Last Admin: 09/10/19 09:01 Dose: 50 mg Documented by: Trazodone HCl (Desyrel) 25 mg PO HSP PRN PRN Reason: Insomnia Last Admin: 09/07/19 23:26 Dose: 25 mg Documented by: Medical - PN: A/P - Time Spent With Patient Total time spent is greater than 50% in coordination of care (as documented) at patient's floor/unit and/or counseling patient: - Narrative A/P Narrative: Acute pancreatitis probable alcohol and/or medication induced Patient was on Janumet, celecoxib and estradiol can precipitate pancreatitis. But Januvia well known to cause pancreatitis Patient is also drinking more than usual amount of wine with the and iday season Her diet advanced to full liquid she is having pain with full liquid diet-we will keep the full liquid diet for now Pain management with Dilaudid and added tramadol 50 every 8 hourly IV fluid resuscitation lactated Ringer-we will stop the IV fluid resuscitation later today She is on full liquid diet If her pain improves can be discharged tomorrow Type 2 diabetes We will monitor her blood glucose Sliding scale insulin We will stop the Janumet and will continue the metformin alone A1c level 6.6 and I think her diabetes can be managed with metformin alone and follow-up with the primary care Essential hypertension Continue amlodipine Alcoholism Patient drinks wine more than unusual sometimes Patient agreed to stop alcohol completely DVT prophylaxis-subcu heparin CODE STATUS-full code Expected length of stay-1 midnights
[2019-09-10] MEDS: LACTATED RINGERS 1,000 ML IV SCH (14:48)
[2019-09-10] MEDS ORDERED: INSULIN LISPRO 1 UNIT/0.01 ML UNIT SQ SCH (17:00)
[2019-09-10] MEDS: SENNOSIDES 1 TABLET PO SCH (20:59)
[2019-09-11] MEDS: traMADol 50 MG TABLET PO SCH ×3 (02:28→17:55)
[2019-09-11 06:08] LABS: Basophils # (Auto) 0 K/mcL (0.0-0.3); Basophils % (Auto) 0.2 % (0.0-2.0); Eosinophils # (Auto) 0.1 K/mcL (0.0-0.7); Eosinophils % (Auto) 1.3 % (0.0-7.0); Granulocytes % (Auto) 80.1 % (38.0-78.0); Hematocrit 41.3 % (36.0-48.0); Hemoglobin 13.6 g/dL (12.0-15.0); Lymphocytes % (Auto) 10.1 % (15.5-49.0); Mean Cell Volume 88.1 fL (80.0-100.0); Mean Corpuscular HGB Conc 32.9 g/dL (31.0-36.0); Mean Platelet Volume 11.7 fL (7.4-10.4); Monocytes # (Auto) 0.9 K/mcL (0.1-0.9); Monocytes % (Auto) 8.3 % (1.0-12.0); Platelet Count 255 K/mcL (140-440); RBC 4.68 M/mcL (4.00-5.20); Red Cell Distribution Width 13.4 % (11.5-14.5); WBC 10.2 K/mcL (4.5-11.0)
[2019-09-11 06:48] LABS: ALT/SGPT 12 U/l (0-40); AST/SGOT 13 U/l (0-37); Albumin 3.3 gm/dL (3.2-5.2); Albumin/Globulin Ratio 0.9 (1.0-2.3); Alkaline Phosphatase 122 U/L (39-117); Bilirubin,Total 0.7 mg/dL (0.0-1.0); Globulin 3.8 gm/dL (2.2-3.7); Glucose 188 mg/dL (70-105)
[2019-09-11 06:50] LABS: Blood Urea Nitrogen 5 mg/dl (8-23); Carbon Dioxide 29 mmol/L (22-30); Chloride 93 mmol/L (96-108); Glomerular Filtration Rate 91
[2019-09-11] MEDS: HYDROmorphone 2 MG/ML VIAL IV PRN (07:31)
[2019-09-11] MEDS: 0.9 % SODIUM CHLORIDE 10 ML SYRINGE IV SCH ×3 (07:31→22:01)
[2019-09-11] MEDS: INSULIN LISPRO 1 UNIT/0.01 ML UNIT SQ SCH ×4 (07:39→21:40)
[2019-09-11] MEDS: HEPARIN 5,000 UNIT/ML VIAL SQ SCH ×2 (09:53→20:57)
[2019-09-11] MEDS: DOCUSATE SODIUM 100 MG CAPSULE PO SCH ×2 (09:53→20:58)
[2019-09-11] MEDS ORDERED: OMEPRAZOLE 20 MG CAPSULE PO PRN ×2 (10:14→18:42)
[2019-09-11] MEDS ORDERED: amLODIPine 5 MG TABLET PO SCH (10:21)
[2019-09-11] MEDS ORDERED: hydrALAZINE 20 MG/ML VIAL IV PRN (16:40)
[2019-09-11] MEDS ORDERED: LEVOTHYROXINE 100 MCG TABLET PO SCH (16:40)
[2019-09-11] MEDS ORDERED: MONTELUKAST 10 MG TABLET PO SCH (16:40)
[2019-09-11] MEDS ORDERED: ASPIRIN 81 MG TAB.CHEW PO SCH (16:40)
[2019-09-11] MEDS ORDERED: ATORVASTATIN 20 MG TABLET PO SCH (16:40)
[2019-09-11] MEDS ORDERED: diphenhydrAMINE 25 MG CAPSULE PO ONE (17:34)
[2019-09-11] MEDS ORDERED: METOPROLOL TARTRATE 5 MG/5 ML VIAL IV ONE (17:35)
[2019-09-11] MEDS ORDERED: diphenhydrAMINE 50 MG/ML VIAL IV ONE (17:43)
[2019-09-11] MEDS ORDERED: METOPROLOL TARTRATE 5 MG/5 ML VIAL IV STA (17:44)
[2019-09-11] MEDS ORDERED: 0.9 % SODIUM CHLORIDE 1,000 ML BAG IV SCH (17:45)
[2019-09-11] MEDS ORDERED: ESMOLOL 2,500 MG in PREMIX 1 BAG IV SCH (18:00)
[2019-09-11] MEDS ORDERED: 0.9 % SODIUM CHLORIDE 250 ML IV SCH (18:00)
[2019-09-11] MEDS ORDERED: 0.9 % SODIUM CHLORIDE 1,000 ML IV SCH ×2 (18:00→18:42)
[2019-09-11] MEDS ORDERED: DEXTROSE 50% 50 ML VIAL IV PRN (18:42)
[2019-09-11] MEDS ORDERED: traZODone HCL 50 MG TABLET PO PRN (18:42)
[2019-09-11] MEDS ORDERED: DEXTROSE 31 GM ORAL.SUSP PO PRN (18:42)
[2019-09-11] MEDS ORDERED: ONDANSETRON 4 MG/2 ML VIAL IV PRN (18:42)
[2019-09-11 18:57] LABS: Calcium 9.8 mg/dl (8.6-10.4); Carbon Dioxide 22 mmol/L (22-30); Glomerular Filtration Rate 85; Glucose 197 mg/dL (70-105)
[2019-09-11 19:11] LABS: Blood Urea Nitrogen 8 mg/dl (8-23); Chloride 91 mmol/L (96-108)
--- NOTE | 2019-09-11 19:19 | Cat Scan Report ---
CLINICAL INFORMATION: Confusion COMPARISON: None. TECHNIQUE: 2.5 mm helical slices were obtained in the skull base to vertex. Following reconstruction, axial reformatted images were reviewed at bone and parenchymal windows. The exam was performed using radiation dose optimization techniques including, but not limited to, automated exposure control, adjustment of the mA and/or kV according to patient size and use of iterative reconstruction technique. FINDINGS: The ventricles, sulci, fissures, and cisterns are mildly enlarged patible with mild age-related atrophy. No extra-axial fluid collections are identified. Mild chronic ischemic changes in the deep cerebral white matter are suspected for age... There is no evidence of hemorrhage, mass effect, or edema. Bone windows show no osseous abnormality. IMPRESSION: Mild atrophy with minimal chronic ischemic changes in the deep cerebral white matter typical for age.. Interpreted and Authenticated by: Des Jon 09/11/19
[2019-09-11 19:47] LABS: Appearance,Urine HAZY; Bacteria,Urine MANY /hpf (0); Bilirubin,Urine NEG (NEG); Color,Urine YELLOW; Culture Indicated,Urine NO; Glucose,Urine (UA) 50 mg/dL (NEG); Ketones,Urine 80 mg/dL (NEG); Leukocyte Esterase,Urine NEG /uL (NEG); Mucus,Urine MANY /hpf (0); Nitrate,Urine NEG (NEG); Protein,Urine >=500 mg/dL (NEG); Specific Gravity,Urine 1.016 (1.000-1.035); Urine Blood 0.03 mg/dL (<0.03); Urine Hyaline Cast 53 /lpf (0-2); Urine RBC 12 /hpf (0-1); Urine Squamous Epithelial Cell 6 /hpf (0-4); Urine WBC 9 /hpf (0-4)
[2019-09-11] MEDS: SENNOSIDES 1 TABLET PO SCH (20:57)
[2019-09-11] MEDS ORDERED: IOPAMIDOL 100 ML BOTTLE IV ONE (21:27)
[2019-09-11] MEDS ORDERED: cefTRIAXone 1 GM VIAL IV SCH (21:30)
--- NOTE | 2019-09-11 22:19 | Internal Med Progress Note ---
Medical - PN: Subj Patient information: Note initiated : 09/11/19 at 10:01 pm Service Date, if different from initiated Date: [] Patient: Blossom Craig 79 y/o F admitted on 09/07/19 for left upper abd pain. Chief Complaint: [] This is an 79-year-old female admitted with acute pancreatitis, etiologies unknown. She has less abdominal pain and lipase trending down. She is on full liquid which she tolerated. This afternoon, patient blood pressure went up this afternoon. For which hydralazine 10 mg IV was given. Short while after hydralazine was given, patient heart rate went up to 180. A rapid response was called. EKG showed sinus tachycardia and left anterior fascicular block. She was given Benadryl 25 mg IV once. Metoprolol 2.5 milligrams IV x 2. Her heart rate gradually went down to around 90. Repeat EKG left anterior fascicular block this. Troponin 0 0.01, TSH 6.48, d-dimer 6.35 CT angios chest and free T4/free T3 were ordered It was reported and patient is confused today. CT of head negative. Her urine looks cloudy. UA and blood culture was sent. Considering confusion, ceftriaxone was started. Gentle IV fluid. - Constitutional Vitals: Vital Signs Temp Pulse Resp BP Pulse Ox 97.9 F 74 20 115/64 97 09/11/19 20:00 09/11/19 21:00 09/11/19 20:00 09/11/19 21:00 09/11/19 21:00 Period Temp Pulse Resp BP Sys/Barba Pulse Ox Last 24 Hr 97.9 F-98.6 F 68-102 14-20 115-180/52-99 90-99 Intake and Output 09/11/19 09/11/19 09/12/19 13:59 21:59 05:59 Intake Total 240 240 Output Total 600 180 Balance -360 60 Weight 68.266 kg Patient Weight 09/12/19 05:59 Weight 68.266 kg Intake & Output: Intake & Output 09/11/19 09/11/19 09/12/19 13:59 21:59 05:59 Intake Total 240 240 Output Total 600 180 Balance -360 60 Weight 68.266 kg Intake: Oral 240 240 Output: Urine Catheter Amount 180 Void Amount 600 Other: Meal Lunch Dinner Percent of Meal Consumed 100% 25% Feeding Ability Independent Independent Urine Appearance Clear Urine Color Light Autumn General appearance: no acute distress - Head Head exam: Present: atraumatic, normocephalic - Eye Eye exam: Present: EOMI, PERRL - ENT ENT exam: Present: normal exam - Neck Neck exam: Present: normal inspection - Respiratory Respiratory exam: Present: CTAB - Cardiovascular Cardiovascular exam: Present: normal rate and rhythm - GI/Abdominal GI/Abdominal exam: Present: normal bowel sounds, soft, tenderness - Extremities Exam Extremities exam: Present: full ROM. Absent: Jesse's sign - Neurological Exam Neurological exam: Present: alert. Absent: motor sensory deficit - Psychiatric Psychiatric exam: Present: normal affect, normal mood Medical - PN: Obj Da - Labs CBC & Chem 7: 09/11/19 04:16 09/11/19 17:35 Labs: Abnormal Lab Results 09/11/19 09/11/19 09/11/19 18:53 17:35 17:35 MPV Gran % Lymph % (Auto) Gran # Lymph # (Auto) D-Dimer 6.35 H Sodium Chloride Anion Gap BUN Creatinine Glucose Alkaline Phosphatase Globulin Albumin/Globulin Ratio TSH 6.48 H Urine Protein >=500 A Urine Glucose (UA) 50 A Urine Ketones 80 A Urine Occult Blood 0.03 A Urine Urobilinogen 4.0 A Urine RBC 12 H Urine WBC 9 H Ur Squamous Epith Cells 6 H Urine Bacteria Many A Hyaline Casts 53 H Urine Mucus Many A 09/11/19 09/11/19 09/11/19 17:35 04:16 04:16 MPV 11.7 H Gran % 80.1 H Lymph % (Auto) 10.1 L Gran # 8.2 H Lymph # (Auto) 1.0 L D-Dimer Sodium 132 L Chloride 91 L 93 L Anion Gap 21.0 H BUN 5 L Creatinine 0.5 L Glucose 197 H 188 H Alkaline Phosphatase 122 H Globulin 3.8 H Albumin/Globulin Ratio 0.9 L TSH Urine Protein Urine Glucose (UA) Urine Ketones Urine Occult Blood Urine Urobilinogen Urine RBC Urine WBC Ur Squamous Epith Cells Urine Bacteria Hyaline Casts Urine Mucus Meds: Medications Aspirin (Aspirin) 81 mg PO DAILY [facility] Atorvastatin Calcium (Lipitor) 20 mg PO DAILY [facility] Ceftriaxone Sodium (Rocephin) 1 gm IV Q24H [facility]; Protocol Last Admin: 09/11/19 21:40 Dose: 1 gm Documented by: Dextrose (Dextrose 50%) 0 ml IV UD PRN PRN Reason: Hypoglycemia Diagnostic Test (Pha) (Accu-Chek) 1 each FS ACHS [facility] Last Admin: 09/11/19 20:58 Dose: 1 each Documented by: Docusate Sodium (Colace) 100 mg PO BID [facility] Last Admin: 09/11/19 20:58 Dose: 100 mg Documented by: Escitalopram Oxalate (Lexapro) 20 mg PO DAILY [facility] Glucose (Insta-Glucose) 15 gm PO PRN PRN PRN Reason: Hypoglycemia Heparin Sodium (Porcine) (Heparin) 5,000 unit SQ Q12 [facility] Last Admin: 09/11/19 20:57 Dose: 5,000 unit Documented by: Hydromorphone HCl (Dilaudid) 0.25 mg IV Q2HP PRN; Protocol PRN Reason: Per Pain Protocol Sodium Chloride (Sodium Chloride 0.9%) 1,000 mls @ 50 mls/hr IV .Q20H [facility] Last Admin: 09/11/19 21:42 Dose: 50 mls/hr Documented by: Esmolol HCl 2,500 mg/ Premix 250 mls @ 20.48 mls/hr IV .[id number] [facility]; Protocol Sodium Chloride (Sodium Chloride 0.9%) 250 mls @ 20 mls/hr IV .[id number] [facility] Insulin Human Lispro (Humalog) 0 unit SQ ACHS [facility]; Protocol Last Admin: 09/11/19 21:40 Dose: 1 units Documented by: Levothyroxine Sodium (Synthroid) 100 mcg PO ACB [facility] Montelukast Sodium (Singular) 10 mg PO DAILY [facility] Omeprazole (Prilosec) 20 mg PO DAILYP PRN PRN Reason: GERD Ondansetron HCl (Zofran) 4 mg IV Q6HP PRN PRN Reason: Nausea And Vomiting Senna (Senokot) 2 tab PO HS [facility] Last Admin: 09/11/19 20:57 Dose: 2 tab Documented by: Sodium Chloride (Saline Flush) 10 ml IV Q8 [facility] Tramadol HCl (Ultram) 50 mg PO Q8H [facility] Trazodone HCl (Desyrel) 25 mg PO HSP PRN PRN Reason: Insomnia Medical - PN: A/P - Time Spent With Patient Total time spent is greater than 50% in coordination of care (as documented) at patient's floor/unit and/or counseling patient: - Narrative A/P Narrative: Assessment and plan: Acute pancreatitis, etiologies unknown Patient was on Janumet, celecoxib and estradiol which could cause pancreatitis. Patient is also drinking more than usual amount of wine with the and season She is on full liquid diet which she tolerated Pain management with Dilaudid and added tramadol 50 every 8 hourly Lipase trending down to 14 today. But patient still complains of a lot of pain Type 2 diabetes We will monitor her blood glucose Sliding scale insulin We will stop the Janumet and will continue the metformin alone A1c level 6.6 and I think her diabetes can be managed with metformin alone and follow-up with the primary care Essential hypertension Continue amlodipine Alcoholism Patient drinks wine more than unusual sometimes Patient agreed to stop alcohol completely This afternoon, patient blood pressure went up this afternoon. For which hydralazine 10 mg IV was given. Short while after hydralazine was given, patient heart rate went up to 180. A rapid response was called. EKG showed sinus tachycardia and left anterior fascicular block. She was given Benadryl 25 mg IV once. Metoprolol 2.5 milligrams IV x 2. Her heart rate gradually went down to around 90. Repeat EKG left anterior fascicular block this. Troponin 0 0.01, TSH 6.48, d-dimer 6.35 CT angios chest and free T4/free T3 were ordered It was reported and patient is confused today. CT of head negative. Her urine looks cloudy. UA and blood culture was sent. Considering confusion, ceftriaxo ne was started. Gentle IV fluid. DVT prophylaxis-subcu heparin CODE STATUS-full code Expected length of stay-1 midnights
[2019-09-11 22:32] LABS: Appearance,Urine CLEAR; Bacteria,Urine FEW /hpf (0); Bilirubin,Urine NEG (NEG); Color,Urine AMBER; Culture Indicated,Urine YES; Glucose,Urine (UA) 50 mg/dL (NEG); Ketones,Urine 80 mg/dL (NEG); Leukocyte Esterase,Urine NEG /uL (NEG); Mucus,Urine MANY /hpf (0); Nitrate,Urine NEG (NEG); Protein,Urine >=500 mg/dL (NEG); Specific Gravity,Urine 1.017 (1.000-1.035); Urine Blood 0.03 mg/dL (<0.03); Urine Hyaline Cast 21 /lpf (0-2); Urine RBC 11 /hpf (0-1); Urine Squamous Epithelial Cell 1 /hpf (0-4); Urine Transitional Epi Cells < 1 /hpf (0-2); Urine WBC 5 /hpf (0-4)
[2019-09-12] MEDS: traMADol 50 MG TABLET PO SCH ×3 (02:05→17:28)
[2019-09-12] MEDS: HYDROmorphone 2 MG/ML VIAL IV PRN ×2 (02:57→23:02)
[2019-09-12 05:13] LABS: Basophils # (Auto) 0 K/mcL (0.0-0.3); Basophils % (Auto) 0.4 % (0.0-2.0); Eosinophils # (Auto) 0.1 K/mcL (0.0-0.7); Eosinophils % (Auto) 0.9 % (0.0-7.0); Granulocytes % (Auto) 77.5 % (38.0-78.0); Hematocrit 44.2 % (36.0-48.0); Hemoglobin 14.4 g/dL (12.0-15.0); Lymphocytes # (Auto) 1.2 K/mcL (1.5-4.8); Mean Cell Volume 87.6 fL (80.0-100.0); Mean Corpuscular HGB Conc 32.6 g/dL (31.0-36.0); Mean Platelet Volume 11.4 fL (7.4-10.4); Monocytes # (Auto) 0.9 K/mcL (0.1-0.9); Monocytes % (Auto) 9.2 % (1.0-12.0); Platelet Count 302 K/mcL (140-440); RBC 5.04 M/mcL (4.00-5.20); Red Cell Distribution Width 13.3 % (11.5-14.5); WBC 9.9 K/mcL (4.5-11.0)
--- NOTE | 2019-09-12 05:14 | Cat Scan Report ---
CLINICAL INFORMATION: Elevated d-dimer and chest pain COMPARISON: Abdomen and pelvic CT 09/07/2019 TECHNIQUE: ml of Isovue-370 were injected intravenously. Using SmartPrep to maximize pulmonary artery opacification, .625mm helical slices were obtained from the lung apices through the lung bases. Following reconstruction, 2.5 mm sagittal, coronal, and axial reformations were processed. The exam was reviewed at mediastinal, lung, and bone windows. The exam was performed using radiation dose optimization techniques including, but not limited to, automated exposure control, adjustment of the mA and/or kV according to patient size and use of iterative reconstruction technique. FINDINGS: Pulmonary parenchymal windows show a 12 mm nodular density in the lateral basilar segment of the right lower lobe (image 80) unchanged from the most recent abdominal CT four days prior. It is more likely inflammatory than malignant but will require follow-up CT. There is mild patchy groundglass in airspace disease in both posterior upper and lower lobes and the lingula which could indicate developing aspiration pneumonia. There are no effusions. Mediastinal windows show the heart is mildly enlarged with moderate calcific and fibrofatty plaque in the coronary arteries. Pulmonary arteries are normal diameter and well opacified without evidence of embolus. There is no adenopathy in the mediastinal hilar or axillary regions. The esophagus is grossly normal. Thyroid is diminutive. Images through this. Abdomen show worsening pancreatitis with a large region of inflammation in the pancreatic head and neck extending into the peripancreatic fat planes. The visualized liver, gallbladder and bile ducts spleen kidneys and adrenal glands are unremarkable. Bone windows show no osseous abnormality IMPRESSION: 1. No evidence of pulmonary embolus. 2. 12 mm nodular density in the lateral segment of the right lower lobe is unchanged from the CT just four days prior. It is more likely inflammatory than malignant. Suggest: six month follow-up chest CT for reevaluation. 3. Mild patchy groundglass airspace disease in both posterior upper/ lower lobes and lingula which could indicate developing aspiration pneumonia. Suggest plain film follow-up. 4. Worsening pancreatitis in the pancreatic head and neck since the abdominal CT of four days prior. No evidence of necrosis or abscess or other complication however. Interpreted and Authenticated by: Des Jon 09/12/19
[2019-09-12] MEDS: 0.9 % SODIUM CHLORIDE 10 ML SYRINGE IV SCH ×3 (05:40→22:05)
[2019-09-12 05:44] LABS: ALT/SGPT 15 U/l (0-40); AST/SGOT 20 U/l (0-37); Albumin 3.2 gm/dL (3.2-5.2); Albumin/Globulin Ratio 0.8 (1.0-2.3); Alkaline Phosphatase 117 U/L (39-117); Bilirubin,Total 0.5 mg/dL (0.0-1.0); Blood Urea Nitrogen 8 mg/dl (8-23); Calcium 9.2 mg/dl (8.6-10.4); Carbon Dioxide 27 mmol/L (22-30); Free T4 (Free Thyroxine) 0.97 ng/dl (0.7-1.7); Globulin 3.9 gm/dL (2.2-3.7); Glomerular Filtration Rate 85; Glucose 133 mg/dL (70-105)
[2019-09-12 05:50] LABS: Chloride 95 mmol/L (96-108)
[2019-09-12] MEDS ORDERED: LEVOTHYROXINE 100 MCG TABLET PO SCH (07:30)
[2019-09-12] MEDS: ESMOLOL 2,500 MG in PREMIX 1 BAG IV SCH ×2 (07:53→19:50)
[2019-09-12] MEDS: 0.9 % SODIUM CHLORIDE 250 ML IV SCH ×2 (07:54→19:51)
[2019-09-12] MEDS ORDERED: METOPROLOL SUCCINATE 25 MG TAB.XL.24H PO ONE (07:58)
[2019-09-12] MEDS: INSULIN LISPRO 1 UNIT/0.01 ML UNIT SQ SCH ×4 (08:20→22:05)
[2019-09-12] MEDS: LEVOTHYROXINE 100 MCG TABLET PO SCH (08:28)
[2019-09-12] MEDS: MONTELUKAST 10 MG TABLET PO SCH (08:30)
[2019-09-12] MEDS: POTASSIUM CHLORIDE 20 MEQ TABLET PO SCH ×3 (08:30→12:55)
[2019-09-12] MEDS: ESCITALOPRAM 20 MG TABLET PO SCH (08:31)
[2019-09-12] MEDS: HEPARIN 5,000 UNIT/ML VIAL SQ SCH ×2 (08:31→22:05)
[2019-09-12] MEDS: ASPIRIN 81 MG TAB.CHEW PO SCH (08:31)
[2019-09-12] MEDS: ATORVASTATIN 20 MG TABLET PO SCH (08:31)
[2019-09-12] MEDS: DOCUSATE SODIUM 100 MG CAPSULE PO SCH ×2 (08:31→22:05)
[2019-09-12] MEDS ORDERED: ATORVASTATIN 20 MG TABLET PO SCH (09:00)
[2019-09-12] MEDS ORDERED: amLODIPine 5 MG TABLET PO SCH (09:00)
[2019-09-12] MEDS ORDERED: MONTELUKAST 10 MG TABLET PO SCH (09:00)
[2019-09-12] MEDS ORDERED: ESCITALOPRAM 20 MG TABLET PO SCH (09:00)
[2019-09-12] MEDS ORDERED: ASPIRIN 81 MG TAB.CHEW PO SCH (09:00)
--- NOTE | 2019-09-12 20:53 | Internal Med Progress Note ---
Medical - PN: Subj Patient information: Note initiated : 09/12/19 at 8:51 pm Service Date, if different from initiated Date: [] Patient: Blossom Craig 79 y/o F admitted on 09/07/19 for left upper abd pain. Chief Complaint: [] This is an 79-year-old female admitted with acute pancreatitis, etiologies unknown. She has less abdominal pain and lipase trending down. She is on full liquid which she tolerated. Today her heart rate is stable and acceptable. Blood pressure still high. She complains of more abdominal pain. I advised her not to take solid food and to stay on clear oral full liquid. - Constitutional Vitals: Vital Signs Temp Pulse Resp BP Pulse Ox 97.3 F 86 18 140/68 98 09/12/19 19:32 09/12/19 19:32 09/12/19 19:32 09/12/19 19:32 09/12/19 19:32 Period Temp Pulse Resp BP Sys/Barba Pulse Ox Last 24 Hr 96.6 F-98.9 F 71-86 16-20 115-165/54-91 90-100 Intake and Output 09/12/19 09/12/19 09/12/19 05:59 13:59 21:59 Intake Total 500 1926 720 Output Total 370 225 300 Balance 130 1701 420 Weight 68.266 kg 69.173 kg Patient Weight 09/13/19 05:59 Weight 69.173 kg Intake & Output: Intake & Output 09/12/19 09/12/19 09/12/19 05:59 13:59 21:59 Intake Total 500 1926 720 Output Total 370 225 300 Balance 130 1701 420 Weight 68.266 kg 69.173 kg Intake: IV 1326 Sodium Chloride 0.9% 1,000 ml @ 1326 50 mls/hr IV .Q20H [facility] Rx#: [id number] Oral 500 600 720 Output: Urine Catheter Amount 45 Void Amount 325 225 300 Other: Meal Lunch Dinner Percent of Meal Consumed 50% 100% Feeding Ability Independent Urine Appearance Sediment Clear Urine Color Dark Yellow Bright Yellow Dark Yellow Urine Odor Strong Normal General appearance: no acute distress - Head Head exam: Present: normal inspection - Eye Eye exam: Present: EOMI, PERRL - ENT ENT exam: Present: normal exam - Neck Neck exam: Present: normal inspection - Respiratory Respiratory exam: Present: normal respiratory exam, CTAB - Cardiovascular Cardiovascular exam: Present: normal rate and rhythm, RRR - Extremities Exam Extremities exam: Absent: pedal edema, tenderness, Jesse's sign - Neurological Exam Neurological exam: Absent: motor sensory deficit (No focal neurological deficits) - Psychiatric Psychiatric exam: Present: normal mood - Skin Skin exam: Present: warm Medical - PN: Obj Da - Labs CBC & Chem 7: 09/12/19 04:12 09/12/19 04:12 Labs: Abnormal Lab Results 09/12/19 09/12/19 09/12/19 04:12 04:12 04:12 MPV 11.4 H Gran % Lymph % (Auto) 12.0 L Gran # Lymph # (Auto) 1.2 L D-Dimer Sodium Potassium 3.1 L Chloride 95 L Anion Gap BUN Creatinine Glucose 133 H Alkaline Phosphatase Globulin 3.9 H Albumin/Globulin Ratio 0.8 L TSH Free T3 pg/mL 1.6 L Urine Protein Urine Glucose (UA) Urine Ketones Urine Occult Blood Urine Urobilinogen Urine RBC Urine WBC Ur Squamous Epith Cells Urine Bacteria Hyaline Casts Urine Mucus 09/11/19 09/11/19 09/11/19 21:10 18:53 17:35 MPV Gran % Lymph % (Auto) Gran # Lymph # (Auto) D-Dimer Sodium Potassium Chloride Anion Gap BUN Creatinine Glucose Alkaline Phosphatase Globulin Albumin/Globulin Ratio TSH 6.48 H Free T3 pg/mL Urine Protein >=500 A >=500 A Urine Glucose (UA) 50 A 50 A Urine Ketones 80 A 80 A Urine Occult Blood 0.03 A 0.03 A Urine Urobilinogen 4.0 A 4.0 A Urine RBC 11 H 12 H Urine WBC 5 H 9 H Ur Squamous Epith Cells 6 H Urine Bacteria Few A Many A Hyaline Casts 21 H 53 H Urine Mucus Many A Many A 09/11/19 09/11/19 09/11/19 17:35 17:35 04:16 MPV Gran % Lymph % (Auto) Gran # Lymph # (Auto) D-Dimer 6.35 H Sodium 132 L Potassium Chloride 91 L 93 L Anion Gap 21.0 H BUN 5 L Creatinine 0.5 L Glucose 197 H 188 H Alkaline Phosphatase 122 H Globulin 3.8 H Albumin/Globulin Ratio 0.9 L TSH Free T3 pg/mL Urine Protein Urine Glucose (UA) Urine Ketones Urine Occult Blood Urine Urobilinogen Urine RBC Urine WBC Ur Squamous Epith Cells Urine Bacteria Hyaline Casts Urine Mucus 09/11/19 04:16 MPV 11.7 H Gran % 80.1 H Lymph % (Auto) 10.1 L Gran # 8.2 H Lymph # (Auto) 1.0 L D-Dimer Sodium Potassium Chloride Anion Gap BUN Creatinine Glucose Alkaline Phosphatase Globulin Albumin/Globulin Ratio TSH Free T3 pg/mL Urine Protein Urine Glucose (UA) Urine Ketones Urine Occult Blood Urine Urobilinogen Urine RBC Urine WBC Ur Squamous Epith Cells Urine Bacteria Hyaline Casts Urine Mucus Meds: Medications Aspirin (Aspirin) 81 mg PO DAILY [facility] Last Admin: 09/12/19 08:31 Dose: 81 mg Documented by: Atorvastatin Calcium (Lipitor) 20 mg PO DAILY [facility] Last Admin: 09/12/19 08:31 Dose: 20 mg Documented by: Dextrose (Dextrose 50%) 0 ml IV UD PRN PRN Reason: Hypoglycemia Diagnostic Test (Pha) (Accu-Chek) 1 each FS ACHS [facility] Last Admin: 09/12/19 17:20 Dose: 1 each Documented by: Docusate Sodium (Colace) 100 mg PO BID [facility] Last Admin: 09/12/19 08:31 Dose: 100 mg Documented by: Escitalopram Oxalate (Lexapro) 20 mg PO DAILY [facility] Last Admin: 09/12/19 08:31 Dose: 20 mg Documented by: Glucose (Insta-Glucose) 15 gm PO PRN PRN PRN Reason: Hypoglycemia Heparin Sodium (Porcine) (Heparin) 5,000 unit SQ Q12 [facility] Last Admin: 09/12/19 08:31 Dose: 5,000 unit Documented by: Hydromorphone HCl (Dilaudid) 0.25 mg IV Q2HP PRN; Protocol PRN Reason: Per Pain Protocol Last Admin: 09/12/19 02:57 Dose: 0.25 mg Documented by: Esmolol HCl 2,500 mg/ Premix 250 mls @ 20.48 mls/hr IV .[id number] [facility]; Protocol Last Admin: 09/12/19 19:50 Dose: Not Given Documented by: Sodium Chloride (Sodium Chloride 0.9%) 250 mls @ 20 mls/hr IV .[id number] [facility] Last Admin: 09/12/19 19:51 Dose: Not Given Documented by: Insulin Human Lispro (Humalog) 0 unit SQ ACHS [facility]; Protocol Last Admin: 09/12/19 17:20 Dose: Not Given Documented by: Levothyroxine Sodium (Synthroid) 100 mcg PO ACB [facility] Last Admin: 09/12/19 08:28 Dose: 100 mcg Documented by: Montelukast Sodium (Singular) 10 mg PO DAILY [facility] Last Admin: 09/12/19 08:30 Dose: 10 mg Documented by: Omeprazole (Prilosec) 20 mg PO DAILYP PRN PRN Reason: GERD Ondansetron HCl (Zofran) 4 mg IV Q6HP PRN PRN Reason: Nausea And Vomiting Senna (Senokot) 2 tab PO HS [facility] Last Admin: 09/11/19 20:57 Dose: 2 tab Documented by: Sodium Chloride (Saline Flush) 10 ml IV Q8 [facility] Last Admin: 09/12/19 14:31 Dose: 10 ml Documented by: Tramadol HCl (Ultram) 50 mg PO Q8H [facility] Last Admin: 09/12/19 17:28 Dose: 50 mg Documented by: Trazodone HCl (Desyrel) 25 mg PO HSP PRN PRN Reason: Insomnia Medical - PN: A/P - Time Spent With Patient Total time spent is greater than 50% in coordination of care (as documented) at patient's floor/unit and/or counseling patient: - Narrative A/P Narrative: Assessment and plan: Acute pancreatitis, etiologies unknown Patient was on Janumet, celecoxib and estradiol which could cause pancreatitis. Patient is also drinking more than usual amount of wine with the and season She is on full liquid diet which she tolerated Pain management with Dilaudid and added tramadol 50 every 8 hourly Lipase trending down to normal. She complains of more abdominal pain. I advised her not to take solid food and to stay on clear oral full liquid. Type 2 diabetes We will monitor her blood glucose Sliding scale insulin We will stop the Janumet and will continue the metformin alone A1c level 6.6 and I think her diabetes can be managed with metformin alone and follow-up with the primary care Essential hypertension Continue amlodipine Today her heart rate is stable and acceptable. Blood pressure still high. Alcoholism Patient drinks wine more than unusual sometimes Patient agreed to stop alcohol completely Sinus tachycardia After IV hydralazine, she developed sinus tachycardia. resolved. avoid hydralazine DVT prophylaxis-subcu heparin CODE STATUS-full code Deposition: Facility - placement
[2019-09-12] MEDS: SENNOSIDES 1 TABLET PO SCH (22:05)
[2019-09-13] MEDS: traMADol 50 MG TABLET PO SCH ×3 (02:36→16:57)
[2019-09-13] MEDS: HYDROmorphone 2 MG/ML VIAL IV PRN (04:48)
[2019-09-13] MEDS: 0.9 % SODIUM CHLORIDE 10 ML SYRINGE IV SCH ×4 (05:59→20:29)
[2019-09-13] MEDS: ESMOLOL 2,500 MG in PREMIX 1 BAG IV SCH ×3 (07:02→23:13)
[2019-09-13] MEDS: LEVOTHYROXINE 100 MCG TABLET PO SCH (07:39)
[2019-09-13] MEDS: DOCUSATE SODIUM 100 MG CAPSULE PO SCH ×2 (08:34→20:24)
[2019-09-13] MEDS: ASPIRIN 81 MG TAB.CHEW PO SCH (08:34)
[2019-09-13] MEDS: INSULIN LISPRO 1 UNIT/0.01 ML UNIT SQ SCH ×4 (08:34→20:29)
[2019-09-13] MEDS: MONTELUKAST 10 MG TABLET PO SCH (08:34)
[2019-09-13] MEDS: 0.9 % SODIUM CHLORIDE 250 ML IV SCH ×2 (08:35→13:41)
[2019-09-13] MEDS: HEPARIN 5,000 UNIT/ML VIAL SQ SCH (08:35)
[2019-09-13] MEDS: ESCITALOPRAM 20 MG TABLET PO SCH (08:39)
[2019-09-13] MEDS: ATORVASTATIN 20 MG TABLET PO SCH (08:39)
[2019-09-13] MEDS: POTASSIUM CHLORIDE 10 MEQ TABLET PO SCH ×3 (08:42→16:56)
[2019-09-13 08:49] LABS: Basophils # (Auto) 0 K/mcL (0.0-0.3); Basophils % (Auto) 0.4 % (0.0-2.0); Eosinophils # (Auto) 0.2 K/mcL (0.0-0.7); Eosinophils % (Auto) 1.9 % (0.0-7.0); Granulocytes % (Auto) 76.6 % (38.0-78.0); Hematocrit 45.3 % (36.0-48.0); Lymphocytes # (Auto) 1.2 K/mcL (1.5-4.8); Lymphocytes % (Auto) 13.7 % (15.5-49.0); Mean Cell Volume 89.7 fL (80.0-100.0); Mean Corpuscular HGB Conc 30.8 g/dL (31.0-36.0); Mean Platelet Volume 11.3 fL (7.4-10.4); Monocytes # (Auto) 0.7 K/mcL (0.1-0.9); Monocytes % (Auto) 7.4 % (1.0-12.0); Platelet Count 326 K/mcL (140-440); RBC 5.05 M/mcL (4.00-5.20); Red Cell Distribution Width 13.8 % (11.5-14.5)
[2019-09-13 08:57] LABS: ALT/SGPT 18 U/l (0-40); AST/SGOT 23 U/l (0-37); Albumin 3.4 gm/dL (3.2-5.2); Albumin/Globulin Ratio 0.9 (1.0-2.3); Alkaline Phosphatase 117 U/L (39-117); Bilirubin,Direct < 0.2 mg/dL (0.0-0.3); Bilirubin,Total 0.6 mg/dL (0.0-1.0); Blood Urea Nitrogen 12 mg/dl (8-23); Carbon Dioxide 27 mmol/L (22-30); Globulin 3.9 gm/dL (2.2-3.7); Glomerular Filtration Rate 85; Glucose 168 mg/dL (70-105); Lactate Dehydrogenase 257 U/L (94-250); Phosphorous 4.2 mg/dL (2.7-4.5); Triglycerides 119 mg/dl (<150); Uric Acid 2.5 mg/dL (2.5-8.0)
[2019-09-13 08:59] LABS: Chloride 95 mmol/L (96-108)
--- NOTE | 2019-09-13 09:06 | Internal Med Progress Note ---
Medical - PN: Subj Patient information: Note initiated : 09/13/19 at 9:02 am Service Date, if different from initiated Date: [] Patient: Blossom Craig 79 y/o F admitted on 09/07/19 for left upper abd pain. Chief Complaint: [] This is an 79-year-old female admitted with acute pancreatitis, etiologies unknown. She has less abdominal pain and lipase trending down. She is on full liquid which she tolerated. Today she is feeling better, less abdominal pain. Denies nausea, vomiting, or diarrhea. I advised her to continue to stay on clear/full liquid, no solid food. her heart rate is normal. Blood pressure still high. Labs pending - Constitutional Vitals: Vital Signs Temp Pulse Resp BP Pulse Ox 97.5 F 67 20 144/66 96 09/13/19 08:00 09/13/19 06:00 09/13/19 08:00 09/13/19 08:00 09/13/19 08:00 Period Temp Pulse Resp BP Sys/Barba Pulse Ox Last 24 Hr 97.1 F-98.8 F 67-86 16-21 132-165/54-91 95-100 Intake and Output 09/12/19 09/13/19 09/13/19 21:59 05:59 13:59 Intake Total 720 Output Total 300 300 Balance 420 -300 Weight 69.173 kg Intake & Output: Intake & Output 09/12/19 09/13/19 09/13/19 21:59 05:59 13:59 Intake Total 720 Output Total 300 300 Balance 420 -300 Weight 69.173 kg Intake: Oral 720 Output: Void Amount 300 300 Other: Meal Dinner Percent of Meal Consumed 100% Urine Appearance Clear Urine Color Dark Yellow General appearance: no acute distress - Head Head exam: Present: atraumatic, normal inspection, normocephalic - Eye Eye exam: Present: EOMI, PERRL - ENT ENT exam: Present: normal exam - Neck Neck exam: Present: normal inspection - Respiratory Respiratory exam: Present: normal respiratory exam, CTAB - Cardiovascular Cardiovascular exam: Present: normal rate and rhythm, RRR. Absent: JVD - GI/Abdominal GI/Abdominal exam: Present: normal bowel sounds, soft, tenderness (improved) - Extremities Exam Extremities exam: Present: full ROM, normal inspection. Absent: pedal edema, tenderness - Neurological Exam Neurological exam: Present: alert, oriented X3. Absent: motor sensory deficit - Psychiatric Psychiatric exam: Present: normal mood - Skin Skin exam: Present: warm Medical - PN: Obj Da - Labs CBC & Chem 7: 09/13/19 07:44 09/13/19 07:44 Labs: Abnormal Lab Results 09/13/19 09/13/19 09/12/19 07:44 07:44 04:12 MCHC 30.8 L MPV 11.3 H Gran % Lymph % (Auto) 13.7 L Gran # Lymph # (Auto) 1.2 L D-Dimer Sodium 132 L Potassium Chloride 95 L Anion Gap BUN Creatinine Glucose 168 H Alkaline Phosphatase Lactate Dehydrogenase 257 H Globulin 3.9 H Albumin/Globulin Ratio 0.9 L TSH Free T3 pg/mL 1.6 L Urine Protein Urine Glucose (UA) Urine Ketones Urine Occult Blood Urine Urobilinogen Urine RBC Urine WBC Ur Squamous Epith Cells Urine Bacteria Hyaline Casts Urine Mucus 09/12/19 09/12/19 09/11/19 04:12 04:12 21:10 MCHC MPV 11.4 H Gran % Lymph % (Auto) 12.0 L Gran # Lymph # (Auto) 1.2 L D-Dimer Sodium Potassium 3.1 L Chloride 95 L Anion Gap BUN Creatinine Glucose 133 H Alkaline Phosphatase Lactate Dehydrogenase Globulin 3.9 H Albumin/Globulin Ratio 0.8 L TSH Free T3 pg/mL Urine Protein >=500 A Urine Glucose (UA) 50 A Urine Ketones 80 A Urine Occult Blood 0.03 A Urine Urobilinogen 4.0 A Urine RBC 11 H Urine WBC 5 H Ur Squamous Epith Cells Urine Bacteria Few A Hyaline Casts 21 H Urine Mucus Many A 09/11/19 09/11/19 09/11/19 18:53 17:35 17:35 MCHC MPV Gran % Lymph % (Auto) Gran # Lymph # (Auto) D-Dimer 6.35 H Sodium Potassium Chloride Anion Gap BUN Creatinine Glucose Alkaline Phosphatase Lactate Dehydrogenase Globulin Albumin/Globulin Ratio TSH 6.48 H Free T3 pg/mL Urine Protein >=500 A Urine Glucose (UA) 50 A Urine Ketones 80 A Urine Occult Blood 0.03 A Urine Urobilinogen 4.0 A Urine RBC 12 H Urine WBC 9 H Ur Squamous Epith Cells 6 H Urine Bacteria Many A Hyaline Casts 53 H Urine Mucus Many A 09/11/19 09/11/19 09/11/19 17:35 04:16 04:16 MCHC MPV 11.7 H Gran % 80.1 H Lymph % (Auto) 10.1 L Gran # 8.2 H Lymph # (Auto) 1.0 L D-Dimer Sodium 132 L Potassium Chloride 91 L 93 L Anion Gap 21.0 H BUN 5 L Creatinine 0.5 L Glucose 197 H 188 H Alkaline Phosphatase 122 H Lactate Dehydrogenase Globulin 3.8 H Albumin/Globulin Ratio 0.9 L TSH Free T3 pg/mL Urine Protein Urine Glucose (UA) Urine Ketones Urine Occult Blood Urine Urobilinogen Urine RBC Urine WBC Ur Squamous Epith Cells Urine Bacteria Hyaline Casts Urine Mucus Meds: Medications Aspirin (Aspirin) 81 mg PO DAILY [facility] Last Admin: 09/13/19 08:34 Dose: 81 mg Documented by: Atorvastatin Calcium (Lipitor) 20 mg PO DAILY [facility] Last Admin: 09/13/19 08:39 Dose: 20 mg Documented by: Dextrose (Dextrose 50%) 0 ml IV UD PRN PRN Reason: Hypoglycemia Diagnostic Test (Pha) (Accu-Chek) 1 each FS ACHS [facility] Last Admin: 09/13/19 07:52 Dose: 1 each Documented by: Docusate Sodium (Colace) 100 mg PO BID [facility] Last Admin: 09/13/19 08:34 Dose: 100 mg Documented by: Escitalopram Oxalate (Lexapro) 20 mg PO DAILY [facility] Last Admin: 09/13/19 08:39 Dose: 20 mg Documented by: Glucose (Insta-Glucose) 15 gm PO PRN PRN PRN Reason: Hypoglycemia Heparin Sodium (Porcine) (Heparin) 5,000 unit SQ Q12 [facility] Last Admin: 09/13/19 08:35 Dose: 5,000 unit Documented by: Hydromorphone HCl (Dilaudid) 0.25 mg IV Q2HP PRN; Protocol PRN Reason: Per Pain Protocol Last Admin: 09/13/19 04:48 Dose: 0.25 mg Documented by: Esmolol HCl 2,500 mg/ Premix 250 mls @ 20.48 mls/hr IV .[id number] [facility]; Protocol Last Admin: 09/13/19 07:02 Dose: Not Given Documented by: Sodium Chloride (Sodium Chloride 0.9%) 250 mls @ 20 mls/hr IV .[id number] [facility] Last Admin: 09/13/19 08:35 Dose: Not Given Documented by: Insulin Human Lispro (Humalog) 0 unit SQ ACHS [facility]; Protocol Last Admin: 09/13/19 08:34 Dose: 1 units Documented by: Levothyroxine Sodium (Synthroid) 100 mcg PO ACB [facility] Last Admin: 09/13/19 07:39 Dose: 100 mcg Documented by: Montelukast Sodium (Singular) 10 mg PO DAILY [facility] Last Admin: 09/13/19 08:34 Dose: 10 mg Documented by: Omeprazole (Prilosec) 20 mg PO DAILYP PRN PRN Reason: GERD Ondansetron HCl (Zofran) 4 mg IV Q6HP PRN PRN Reason: Nausea And Vomiting Potassium Chloride (Kdur) 10 meq PO TIDCC [facility] Last Admin: 09/13/19 08:42 Dose: 10 meq Documented by: Senna (Senokot) 2 tab PO HS [facility] Last Admin: 09/12/19 22:05 Dose: 2 tab Documented by: Sodium Chloride (Saline Flush) 10 ml IV Q8 [facility] Last Admin: 09/13/19 05:59 Dose: 10 ml Documented by: Tramadol HCl (Ultram) 50 mg PO Q8H [facility] Last Admin: 09/13/19 08:46 Dose: 50 mg Documented by: Trazodone HCl (Desyrel) 25 mg PO HSP PRN PRN Reason: Insomnia Medical - PN: A/P - Time Spent With Patient Total time spent is greater than 50% in coordination of care (as documented) at patient's floor/unit and/or counseling patient: - Narrative A/P Narrative: Assessment and plan: Acute pancreatitis, etiologies unknown Patient was on Janumet, celecoxib and estradiol which could cause pancreatitis. Patient is also drinking more than usual amount of wine with the and season Repeat CT on 09/11 - Worsening pancreatitis I would like her to stay with clear/full liquid for 1-2 more days. Pain management with Dilaudid and added tramadol 50 every 8 hourly Lipase trending down to normal. Type 2 diabetes We will monitor her blood glucose Sliding scale insulin We will stop the Janumet and will continue the metformin alone A1c level 6.6 and I think her diabetes can be managed with metformin alone and follow-up with the primary care Essential hypertension, uncontrolled amlodipine 2.5mg daily and metoprolol 12.5mg daily Today her heart rate is normal. Alcoholism Patient drinks wine more than unusual sometimes Patient agreed to stop alcohol completely Sinus tachycardia After IV hydralazine, she developed sinus tachycardia. resolved. avoid hydralazine Hypothyroidism TSH 6.48, free T3 1.6, free T4 0.97 She is on levothyroxine 100 MCG daily. We may need to increase the levothyroxine but I would like to do it later since she had tachycardia 2 days ago. DVT prophylaxis-Lovenox CODE STATUS-full code Deposition: Facility - placement
[2019-09-13] MEDS ORDERED: METOPROLOL SUCCINATE 25 MG TAB.XL.24H PO SCH (09:15)
[2019-09-13] MEDS ORDERED: amLODIPine 5 MG TABLET PO SCH (09:16)
[2019-09-13] MEDS ORDERED: DEXTROSE 50% 50 ML VIAL IV PRN (12:50)
[2019-09-13] MEDS ORDERED: HYDROmorphone 2 MG/ML VIAL IV PRN (12:50)
[2019-09-13] MEDS ORDERED: DEXTROSE 31 GM ORAL.SUSP PO PRN (12:50)
[2019-09-13] MEDS ORDERED: ONDANSETRON 4 MG/2 ML VIAL IV PRN (12:50)
[2019-09-13] MEDS ORDERED: OMEPRAZOLE 20 MG CAPSULE PO PRN (12:50)
[2019-09-13] MEDS ORDERED: amLODIPine 5 MG TABLET PO ONE (14:24)
--- NOTE | 2019-09-13 14:27 | Internal Med Progress Note ---
Medical - PN: Subj Patient information: Note initiated : 09/13/19 at 2:18 pm Service Date, if different from initiated Date: [] Patient: Blossom Craig 79 y/o F admitted on 09/07/19 for left upper abd pain. Chief Complaint: [] Interval history: This is an 79-year-old female admitted with acute pancreatitis possibly precipitated by alcohol and/or her medications. She was kept on n.p.o. and advance her to clear liquid diet her pain is controlled with the Dilaudid IV electrolytes has been monitored IV fluid resuscitation with LR 09/08-patient's case scenario has been discussed with the family son and explained to them about the possible delayed complication and's recurrence of pancreatitis. I strongly recommend them to stop Januvia and we can continue the Metformin alone as her A1c is 6.6. I strongly recommend stop celecoxib as well. Patient is on estradiol which can rarely cause pancreatitis but this can be reconsidered when she is improved 09/09 -she continued having pain especially when she ate so we will keep her on full liquid diet and continue IV pain medicine and will start her on tramadol 50 every 8 hourly. Starting her on sliding scale insulin 09/10-patient continued having pain requiring IV pain medicine. We continue tramadol and Dilaudid as needed. Discussed with the patient and family and decided to continue full liquid diet and will keep her another day if she c ontinues to improve then can be discharged tomorrow. Physical therapy evaluation before discharge. 09/11 This afternoon, patient blood pressure went up this afternoon. For which hydralazine 10 mg IV was given. Short while after hydralazine was given, patient heart rate went up to 180. A rapid response was called. EKG showed sinus tachycardia and left anterior fascicular block. She was given Benadryl 25 mg IV once. Metoprolol 2.5 milligrams IV x 2. Her heart rate gradually went down to around 90. Repeat EKG left anterior fascicular block this. Troponin 0 0.01, TSH 6.48, d-dimer 6.35 CT angios chest and free T4/free T3 were ordered It was reported and patient is confused today. CT of head negative. Her urine looks cloudy. UA and blood culture was sent. Considering confusion, ceftriaxone was started. Gentle IV fluid. 09/12 Today her heart rate is stable and acceptable. Blood pressure still high. She complains of more abdominal pain. I advised her not to take solid food and to stay on clear oral full liquid. 09/13 Today she is feeling better, less abdominal pain. Denies nausea, vomiting, or diarrhea. I advised her to continue to stay on clear/full liquid, no solid food. her heart rate is normal. Blood pressure still high. Labs pending - Constitutional Vitals: Vital Signs Temp Pulse Resp BP Pulse Ox 97.9 F 67 20 138/42 98 09/13/19 12:00 09/13/19 06:00 09/13/19 12:00 09/13/19 12:00 09/13/19 12:00 Period Temp Pulse Resp BP Sys/Barba Pulse Ox Last 24 Hr 97.1 F-98.8 F 67-86 - 132-156/42-76 95-100 Intake and Output 09/13/19 09/13/19 09/13/19 05:59 13:59 21:59 Intake Total 780 Output Total 300 Balance -300 780 Intake & Output: Intake & Output 09/13/19 09/13/19 09/13/19 05:59 13:59 21:59 Intake Total 780 Output Total 300 Balance -300 780 Intake: Oral 780 Output: Void Amount 300 Other: Meal Lunch Percent of Meal Consumed 50% Feeding Ability Independent Exam: General: Alert, Awake, No acute Distress Eyes/N/T: EOMI, Head/Neck: neck supple, CV: RRR, No murmurs, Pulm: Clear b/l, no wheezing/rhonchi/rales Abd: soft, mild TTP, +BS x4 Ext: no clubbing/cyanosis/edema Neuro: Alert, no focal deficits, moves all extremities, Skin: warm/dry Medical - PN: Obj Da - Labs CBC & Chem 7: 09/13/19 07:44 09/13/19 07:44 Labs: Abnormal Lab Results 09/13/19 09/13/19 09/12/19 07:44 07:44 04:12 MCHC 30.8 L MPV 11.3 H Gran % Lymph % (Auto) 13.7 L Gran # Lymph # (Auto) 1.2 L D-Dimer Sodium 132 L Potassium Chloride 95 L Anion Gap BUN Creatinine Glucose 168 H Alkaline Phosphatase Lactate Dehydrogenase 257 H Globulin 3.9 H Albumin/Globulin Ratio 0.9 L TSH Free T3 pg/mL 1.6 L Urine Protein Urine Glucose (UA) Urine Ketones Urine Occult Blood Urine Urobilinogen Urine RBC Urine WBC Ur Squamous Epith Cells Urine Bacteria Hyaline Casts Urine Mucus 09/12/19 09/12/19 09/11/19 04:12 04:12 21:10 MCHC MPV 11.4 H Gran % Lymph % (Auto) 12.0 L Gran # Lymph # (Auto) 1.2 L D-Dimer Sodium Potassium 3.1 L Chloride 95 L Anion Gap BUN Creatinine Glucose 133 H Alkaline Phosphatase Lactate Dehydrogenase Globulin 3.9 H Albumin/Globulin Ratio 0.8 L TSH Free T3 pg/mL Urine Protein >=500 A Urine Glucose (UA) 50 A Urine Ketones 80 A Urine Occult Blood 0.03 A Urine Urobilinogen 4.0 A Urine RBC 11 H Urine WBC 5 H Ur Squamous Epith Cells Urine Bacteria Few A Hyaline Casts 21 H Urine Mucus Many A 09/11/19 09/11/19 09/11/19 18:53 17:35 17:35 MCHC MPV Gran % Lymph % (Auto) Gran # Lymph # (Auto) D-Dimer 6.35 H Sodium Potassium Chloride Anion Gap BUN Creatinine Glucose Alkaline Phosphatase Lactate Dehydrogenase Globulin Albumin/Globulin Ratio TSH 6.48 H Free T3 pg/mL Urine Protein >=500 A Urine Glucose (UA) 50 A Urine Ketones 80 A Urine Occult Blood 0.03 A Urine Urobilinogen 4.0 A Urine RBC 12 H Urine WBC 9 H Ur Squamous Epith Cells 6 H Urine Bacteria Many A Hyaline Casts 53 H Urine Mucus Many A 09/11/19 09/11/19 09/11/19 17:35 04:16 04:16 MCHC MPV 11.7 H Gran % 80.1 H Lymph % (Auto) 10.1 L Gran # 8.2 H Lymph # (Auto) 1.0 L D-Dimer Sodium 132 L Potassium Chloride 91 L 93 L Anion Gap 21.0 H BUN 5 L Creatinine 0.5 L Glucose 197 H 188 H Alkaline Phosphatase 122 H Lactate Dehydrogenase Globulin 3.8 H Albumin/Globulin Ratio 0.9 L TSH Free T3 pg/mL Urine Protein Urine Glucose (UA) Urine Ketones Urine Occult Blood Urine Urobilinogen Urine RBC Urine WBC Ur Squamous Epith Cells Urine Bacteria Hyaline Casts Urine Mucus Meds: Medications Amlodipine Besylate (Norvasc) 2.5 mg PO DAILY [facility] Aspirin (Aspirin) 81 mg PO DAILY [facility] Atorvastatin Calcium (Lipitor) 20 mg PO DAILY [facility] Dextrose (Dextrose 50%) 0 ml IV UD PRN PRN Reason: Hypoglycemia Diagnostic Test (Pha) (Accu-Chek) 1 each FS ACHS [facility] Docusate Sodium (Colace) 100 mg PO BID [facility] Enoxaparin Sodium (Lovenox) 40 mg SQ DAILY [facility] Escitalopram Oxalate (Lexapro) 20 mg PO DAILY [facility] Glucose (Insta-Glucose) 15 gm PO PRN PRN PRN Reason: Hypoglycemia Hydromorphone HCl (Dilaudid) 0.25 mg IV Q2HP PRN; Protocol PRN Reason: Per Pain Protocol Esmolol HCl 2,500 mg/ Premix 250 mls @ 21.092 mls/hr IV .[id number] [facility]; Protocol Last Admin: 09/13/19 13:41 Dose: Not Given Documented by: Sodium Chloride (Sodium Chloride 0.9%) 250 mls @ 20 mls/hr IV .[id number] [facility] Last Admin: 09/13/19 13:41 Dose: Not Given Documented by: Insulin Human Lispro (Humalog) 0 unit SQ ACHS [facility]; Protocol Levothyroxine Sodium (Synthroid) 100 mcg PO ACB [facility] Metoprolol Succinate (Toprol Xl) 12.5 mg PO DAILY [facility] Montelukast Sodium (Singular) 10 mg PO DAILY [facility] Omeprazole (Prilosec) 20 mg PO DAILYP PRN PRN Reason: GERD Ondansetron HCl (Zofran) 4 mg IV Q6HP PRN PRN Reason: Nausea And Vomiting Potassium Chloride (Kdur) 10 meq PO TIDCC [facility] Senna (Senokot) 2 tab PO HS [facility] Sodium Chloride (Saline Flush) 10 ml IV Q8 [facility] Last Admin: 09/13/19 13:41 Dose: Not Given Documented by: Tramadol HCl (Ultram) 50 mg PO Q8H [facility] Trazodone HCl (Desyrel) 25 mg PO HSP PRN PRN Reason: Insomnia Medical - PN: A/P - Time Spent With Patient Total time spent is greater than 50% in coordination of care (as documented) at patient's floor/unit and/or counseling patient: - Narrative A/P Narrative: A: *Acute pancreatitis, etiologies unknown: meds vs etoh vs other -Patient was on Janumet, celecoxib and estradiol which could cause pancreatitis. -Patient is also drinking more than usual amount of wine with the and season -Repeat CT on 09/11 - Worsening pancreatitis but pt feeling better -Lipase trending down to normal. *Type 2 diabetes: A1c 6.6 *Essential hypertension, uncontrolled: *Alcoholism: Patient drinks wine more than unusual sometimes, Patient agreed to stop alcohol completely *Sinus tachycardia: After IV hydralazine, she developed sinus tachycardia. resolved. *Hypothyroidism: TSH 6.48, free T3 1.6, free T4 0.97 -She is on levothyroxine 100 MCG daily. We may need to increase the levothyroxine but I would like to do it later since she had tachycardia 2 days ago. P: -I would like her to stay with clear/full liquid for 1-2 more days. -Pain management with Dilaudid and added tramadol 50 every 8 hourly -SSI, We will stop the Janumet and will continue the metformin alone -amlodipine 5mg daily and metoprolol 12.5mg daily; avoid hydralazine -avoid hydralazine -cont levothyroxin, We may need to increase the levothyroxine but I would like to do it later since she had tachycardia 2 days ago -pt/ot -CM for placement -ppx: Lovenox Full code
[2019-09-13] MEDS: SENNOSIDES 1 TABLET PO SCH (20:24)
[2019-09-13] MEDS: ENOXAPARIN 40 MG/0.4 ML SYRINGE SQ SCH (20:24)
[2019-09-13] MEDS ORDERED: traZODone HCL 50 MG TABLET PO PRN (21:00)
[2019-09-13] MEDS ORDERED: ENOXAPARIN 40 MG/0.4 ML SYRINGE SQ SCH (21:00)
[2019-09-14] MEDS: 0.9 % SODIUM CHLORIDE 250 ML IV SCH (00:41)
[2019-09-14] MEDS: traMADol 50 MG TABLET PO SCH ×3 (00:42→19:21)
[2019-09-14] MEDS: 0.9 % SODIUM CHLORIDE 10 ML SYRINGE IV SCH ×3 (04:40→20:59)
[2019-09-14 06:46] LABS: ALT/SGPT 25 U/l (0-40); AST/SGOT 40 U/l (0-37); Albumin/Globulin Ratio 0.8 (1.0-2.3); Alkaline Phosphatase 119 U/L (39-117); Bilirubin,Direct < 0.2 mg/dL (0.0-0.3); Bilirubin,Total 0.6 mg/dL (0.0-1.0); Blood Urea Nitrogen 10 mg/dl (8-23); Calcium 8.5 mg/dl (8.6-10.4); Carbon Dioxide 26 mmol/L (22-30); Chloride 96 mmol/L (96-108); Globulin 3.7 gm/dL (2.2-3.7); Glomerular Filtration Rate 91; Glucose 142 mg/dL (70-105); Lactate Dehydrogenase 225 U/L (94-250); Phosphorous 4.3 mg/dL (2.7-4.5); Triglycerides 101 mg/dl (<150)
[2019-09-14] MEDS: LEVOTHYROXINE 100 MCG TABLET PO SCH (07:03)
[2019-09-14] MEDS: INSULIN LISPRO 1 UNIT/0.01 ML UNIT SQ SCH ×4 (07:17→21:07)
[2019-09-14] MEDS: POTASSIUM CHLORIDE 10 MEQ TABLET PO SCH ×3 (08:15→19:20)
[2019-09-14] MEDS: ENOXAPARIN 40 MG/0.4 ML SYRINGE SQ SCH (08:15)
[2019-09-14] MEDS: ATORVASTATIN 20 MG TABLET PO SCH (08:15)
[2019-09-14] MEDS: METOPROLOL SUCCINATE 25 MG TAB.XL.24H PO SCH (08:15)
[2019-09-14] MEDS: ASPIRIN 81 MG TAB.CHEW PO SCH (08:16)
[2019-09-14] MEDS: MONTELUKAST 10 MG TABLET PO SCH (08:16)
[2019-09-14] MEDS: ESCITALOPRAM 20 MG TABLET PO SCH (08:16)
[2019-09-14] MEDS: DOCUSATE SODIUM 100 MG CAPSULE PO SCH ×2 (08:16→20:56)
--- NOTE | 2019-09-14 08:28 | Internal Med Progress Note ---
Medical - PN: Subj Patient information: Note initiated : 09/14/19 at 8:24 am Service Date, if different from initiated Date: [] Patient: Blossom Craig 79 y/o F admitted on 09/07/19 for left upper abd pain. Chief Complaint: [] Interval history: This is an 79-year-old female admitted with acute pancreatitis possibly precipitated by alcohol and/or her medications. She was kept on n.p.o. and advance her to clear liquid diet her pain is controlled with the Dilaudid IV electrolytes has been monitored IV fluid resuscitation with LR 09/08-patient's case scenario has been discussed with the family son and explained to them about the possible delayed complication and's recurrence of pancreatitis. I strongly recommend them to stop Januvia and we can continue the Metformin alone as her A1c is 6.6. I strongly recommend stop celecoxib as well. Patient is on estradiol which can rarely cause pancreatitis but this can be reconsidered when she is improved 09/09 -she continued having pain especially when she ate so we will keep her on full liquid diet and continue IV pain medicine and will start her on tramadol 50 every 8 hourly. Starting her on sliding scale insulin 09/10-patient continued having pain requiring IV pain medicine. We continue tramadol and Dilaudid as needed. Discussed with the patient and family and decided to continue full liquid diet and will keep her another day if she c ontinues to improve then can be discharged tomorrow. Physical therapy evaluation before discharge. 09/11 This afternoon, patient blood pressure went up this afternoon. For which hydralazine 10 mg IV was given. Short while after hydralazine was given, patient heart rate went up to 180. A rapid response was called. EKG showed sinus tachycardia and left anterior fascicular block. She was given Benadryl 25 mg IV once. Metoprolol 2.5 milligrams IV x 2. Her heart rate gradually went down to around 90. Repeat EKG left anterior fascicular block this. Troponin 0 0.01, TSH 6.48, d-dimer 6.35 CT angios chest and free T4/free T3 were ordered It was reported and patient is confused today. CT of head negative. Her urine looks cloudy. UA and blood culture was sent. Considering confusion, ceftriaxone was started. Gentle IV fluid. 09/12 Today her heart rate is stable and acceptable. Blood pressure still high. She complains of more abdominal pain. I advised her not to take solid food and to stay on clear oral full liquid. 09/13 Today she is feeling better, less abdominal pain. Denies nausea, vomiting, or diarrhea. I advised her to continue to stay on clear/full liquid, no solid food. her heart rate is normal. Blood pressure still high. Labs pending 09/14 Continues to feel better. Abdominal pain much improved. Tolerating full liquid diet. No new complaints. Review of Systems: denies headache/fever/chills/nausea/vomiting/chest pain/cough/dyspnea/diarrhea. Otherwise see above. - Constitutional Vitals: Vital Signs Temp Pulse Resp BP Pulse Ox 97.4 F 85 18 140/80 99 09/14/19 07:17 09/14/19 07:17 09/14/19 07:17 09/14/19 07:17 09/14/19 07:17 Period Temp Pulse Resp BP Sys/Barba Pulse Ox Last 24 Hr 97.4 F-98.9 F 78-85 16-20 138-158/42-80 95-99 Intake and Output 09/13/19 09/14/19 09/14/19 21:59 05:59 13:59 Intake Total 240 Output Total 750 200 Balance -510 -200 Weight 68.719 kg Intake & Output: Intake & Output 09/13/19 09/14/19 09/14/19 21:59 05:59 13:59 Intake Total 240 Output Total 750 200 Balance -510 -200 Weight 68.719 kg Intake: Oral 240 Output: Void Amount 750 200 Other: Meal Dinner Percent of Meal Consumed 25% Feeding Ability Assist with Tray Set Up Urine Appearance Clear Clear Urine Color Dark Yellow Bright Yellow Urine Odor Strong # Voids 1 Exam: General: Alert, Awake, No acute Distress Eyes/N/T: EOMI, Head/Neck: neck supple, CV: RRR, No murmurs, Pulm: Clear b/l, no wheezing/rhonchi/rales Abd: soft, minimal TTP, +BS x4 Ext: no clubbing/cyanosis/edema Neuro: Alert, no focal deficits, moves all extremities, Skin: warm/dry Medical - PN: Obj Da - Labs CBC & Chem 7: 09/13/19 07:44 09/14/19 03:58 Labs: Abnormal Lab Results 09/14/19 09/13/19 09/13/19 03:58 07:44 07:44 MCHC 30.8 L MPV 11.3 H Lymph % (Auto) 13.7 L Lymph # (Auto) 1.2 L D-Dimer Sodium 132 L Potassium Chloride 95 L Anion Gap Creatinine 0.5 L Glucose 142 H 168 H Uric Acid 2.0 L Calcium 8.5 L AST 40 H Alkaline Phosphatase 119 H Lactate Dehydrogenase 257 H Albumin 3.0 L Globulin 3.9 H Albumin/Globulin Ratio 0.8 L 0.9 L TSH Free T3 pg/mL Urine Protein Urine Glucose (UA) Urine Ketones Urine Occult Blood Urine Urobilinogen Urine RBC Urine WBC Ur Squamous Epith Cells Urine Bacteria Hyaline Casts Urine Mucus 09/12/19 09/12/19 09/12/19 04:12 04:12 04:12 MCHC MPV 11.4 H Lymph % (Auto) 12.0 L Lymph # (Auto) 1.2 L D-Dimer Sodium Potassium 3.1 L Chloride 95 L Anion Gap Creatinine Glucose 133 H Uric Acid Calcium AST Alkaline Phosphatase Lactate Dehydrogenase Albumin Globulin 3.9 H Albumin/Globulin Ratio 0.8 L TSH Free T3 pg/mL 1.6 L Urine Protein Urine Glucose (UA) Urine Ketones Urine Occult Blood Urine Urobilinogen Urine RBC Urine WBC Ur Squamous Epith Cells Urine Bacteria Hyaline Casts Urine Mucus 09/11/19 09/11/19 09/11/19 21:10 18:53 17:35 MCHC MPV Lymph % (Auto) Lymph # (Auto) D-Dimer Sodium Potassium Chloride Anion Gap Creatinine Glucose Uric Acid Calcium AST Alkaline Phosphatase Lactate Dehydrogenase Albumin Globulin Albumin/Globulin Ratio TSH 6.48 H Free T3 pg/mL Urine Protein >=500 A >=500 A Urine Glucose (UA) 50 A 50 A Urine Ketones 80 A 80 A Urine Occult Blood 0.03 A 0.03 A Urine Urobilinogen 4.0 A 4.0 A Urine RBC 11 H 12 H Urine WBC 5 H 9 H Ur Squamous Epith Cells 6 H Urine Bacteria Few A Many A Hyaline Casts 21 H 53 H Urine Mucus Many A Many A 09/11/19 09/11/19 17:35 17:35 MCHC MPV Lymph % (Auto) Lymph # (Auto) D-Dimer 6.35 H Sodium Potassium Chloride 91 L Anion Gap 21.0 H Creatinine Glucose 197 H Uric Acid Calcium AST Alkaline Phosphatase Lactate Dehydrogenase Albumin Globulin Albumin/Globulin Ratio TSH Free T3 pg/mL Urine Protein Urine Glucose (UA) Urine Ketones Urine Occult Blood Urine Urobilinogen Urine RBC Urine WBC Ur Squamous Epith Cells Urine Bacteria Hyaline Casts Urine Mucus Meds: Medications Amlodipine Besylate (Norvasc) 5 mg PO DAILY [facility] Last Admin: 09/14/19 08:16 Dose: 5 mg Documented by: Aspirin (Aspirin) 81 mg PO DAILY [facility] Last Admin: 09/14/19 08:16 Dose: 81 mg Documented by: Atorvastatin Calcium (Lipitor) 20 mg PO DAILY [facility] Last Admin: 09/14/19 08:15 Dose: 20 mg Documented by: Dextrose (Dextrose 50%) 0 ml IV UD PRN PRN Reason: Hypoglycemia Diagnostic Test (Pha) (Accu-Chek) 1 each FS [facility] Last Admin: 09/14/19 07:17 Dose: 1 each Documented by: Docusate Sodium (Colace) 100 mg PO BID [facility] Last Admin: 09/14/19 08:16 Dose: 100 mg Documented by: Enoxaparin Sodium (Lovenox) 40 mg SQ DAILY [facility] Last Admin: 09/14/19 08:15 Dose: 40 mg Documented by: Escitalopram Oxalate (Lexapro) 20 mg PO DAILY [facility] Last Admin: 09/14/19 08:16 Dose: 20 mg Documented by: Glucose (Insta-Glucose) 15 gm PO PRN PRN PRN Reason: Hypoglycemia Hydromorphone HCl (Dilaudid) 0.25 mg IV Q2HP PRN; Protocol PRN Reason: Per Pain Protocol Esmolol HCl 2,500 mg/ Premix 250 mls @ 21.092 mls/hr IV .[id number] [facility]; Protocol Last Admin: 09/13/19 23:13 Dose: Not Given Documented by: Sodium Chloride (Sodium Chloride 0.9%) 250 mls @ 20 mls/hr IV .[id number] [facility] Last Admin: 09/14/19 00:41 Dose: Not Given Documented by: Insulin Human Lispro (Humalog) 0 unit SQ ACHS [facility]; Protocol Last Admin: 09/14/19 07:17 Dose: Not Given Documented by: Levothyroxine Sodium (Synthroid) 100 mcg PO ACB [facility] Last Admin: 12/22/19 07:03 Dose: 100 mcg Documented by: Metoprolol Succinate (Toprol Xl) 12.5 mg PO DAILY [facility] Last Admin: 09/14/19 08:15 Dose: 12.5 mg Documented by: Montelukast Sodium (Singular) 10 mg PO DAILY [facility] Last Admin: 09/14/19 08:16 Dose: 10 mg Documented by: Omeprazole (Prilosec) 20 mg PO DAILYP PRN PRN Reason: GERD Ondansetron HCl (Zofran) 4 mg IV Q6HP PRN PRN Reason: Nausea And Vomiting Potassium Chloride (Kdur) 10 meq PO TIDCC [facility] Last Admin: 09/14/19 08:15 Dose: 10 meq Documented by: Senna (Senokot) 2 tab PO HS [facility] Last Admin: 09/13/19 20:24 Dose: 2 tab Documented by: Sodium Chloride (Saline Flush) 10 ml IV Q8 [facility] Last Admin: 09/14/19 04:40 Dose: 10 ml Documented by: Tramadol HCl (Ultram) 50 mg PO Q8H [facility] Last Admin: 09/14/19 00:42 Dose: Not Given Documented by: Trazodone HCl (Desyrel) 25 mg PO HSP PRN PRN Reason: Insomnia Medical - PN: A/P - Time Spent With Patient Total time spent is greater than 50% in coordination of care (as documented) at patient's floor/unit and/or counseling patient: - Narrative A/P Narrative: A: *Acute pancreatitis, etiologies unknown: meds vs etoh vs other -Patient was on Janumet, celecoxib and estradiol which could cause pancreatitis. -Patient is also drinking more than usual amount of wine with the and season -Repeat CT on 09/11 - Worsening pancreatitis but pt feeling better -Lipase trending down to normal. *Type 2 diabetes: A1c 6.6 *Essential hypertension, uncontrolled: *Alcoholism: Patient drinks wine more than unusual sometimes, Patient agreed to stop alcohol completely *Sinus tachycardia: After IV hydralazine, she developed sinus tachycardia. resolved. *Hypothyroidism: TSH 6.48, free T3 1.6, free T4 0.97 -She is on levothyroxine 100 MCG daily. We may need to increase the le vothyroxine but I would like to do it later since she had tachycardia 2 days ago. P: -full liquid, low fat diet -Pain management with Dilaudid and added tramadol 50 every 8 hourly -SSI, We will stop the Janumet and will continue the metformin alone -amlodipine increas to 7.5mg daily and toprol 12.5mg daily; avoid hydralazine -cont levothyroxine, We may need to increase the levothyroxine but I would like to do it later since she had tachycardia 2 days ago -pt/ot -CM for placement -ppx: Lovenox Full code
[2019-09-14] MEDS ORDERED: amLODIPine 5 MG TABLET PO ONE (08:45)
[2019-09-14] MEDS ORDERED: amLODIPine 5 MG TABLET PO SCH ×2 (09:00)
--- NOTE | 2019-09-14 12:34 | Discharge Summary ---
Medical - DS: Prov Patient information: Note initiated : 09/14/19 at 12:30 pm Service Date, if different from initiated Date: [] Patient: Blossom Craig 79 y/o F admitted on 09/07/19 for left upper abd pain. Chief Complaint: [] Date of admission: 09/07/19 22:11 Discharge date: 09/15/19 Primary care physician: Rakan Pham Consults: 09/07/19 22:02 Consult to Physician [CONS] Stat Comment: Consulting Provider: Hermilo Avelar Reason For Exam: Physician to Consult Medical - DS: Meds - Discharge Medications Prescriptions: amLODIPine [Norvasc] 7.5 mg PO DAILY #30 tab Active and Home Medications: Home Medications Aspirin EC 81 mg PO DAILY 09/06/19 [History Confirmed 09/07/19 Last Taken Unknown] Atorvastatin [Lipitor] 20 mg PO DAILY 09/06/19 [History Confirmed 09/07/19 Last Taken Unknown] Celecoxib 200 mg PO BID 09/06/19 [History Confirmed 09/07/19 Last Taken Unknown] Escitalopram [Lexapro] 20 mg PO DAILY 09/06/19 [History Confirmed 09/07/19 Last Taken Unknown] Estradiol [Estrace] 1 mg PO DAILY 09/06/19 [History Confirmed 09/07/19 Last Taken Unknown] Levothyroxine [Synthroid] 100 mcg PO DAILY 09/06/19 [History Confirmed 09/07/19 Last Taken Unknown] Montelukast [Singular] 10 mg PO DAILY 09/06/19 [History Confirmed 09/07/19 Last Taken Unknown] Omeprazole [PriLOSEC] 20 mg PO DAILY PRN 09/06/19 [History Confirmed 09/07/19 Last Taken Unknown] amLODIPine [Norvasc] 5 mg PO DAILY 09/06/19 [History Confirmed 09/07/19 Last Taken Unknown] sitaGLIPtin PHOS/metFORMIN HCL [Janumet Xr 50-500 mg Tablet] 1 each PO QDAY 09/06/19 [History Confirmed 09/07/19 Last Taken Unknown] traMADol [Ultram] 50 mg PO Q6HP PRN #10 tab 09/06/19 [Rx Confirmed 09/07/19 Last Taken Unknown] traZODone HCL [Trazodone HCl] 100 mg PO PRN PRN 09/06/19 [History Confirmed 09/07/19 Last Taken Unknown] Vitamin D3 1 tab PO QDAY 09/07/19 [History Confirmed 09/07/19 Last Taken Unknown] Home Medications Aspirin EC 81 mg PO DAILY 09/06/19 [History Confirmed 09/07/19 Last Taken Unknown] Atorvastatin [Lipitor] 20 mg PO DAILY 09/06/19 [History Confirmed 09/07/19 Last Taken Unknown] Escitalopram [Lexapro] 20 mg PO DAILY 09/06/19 [History Confirmed 09/07/19 Last Taken Unknown] Levothyroxine [Synthroid] 100 mcg PO DAILY 09/06/19 [History Confirmed 09/07/19 Last Taken Unknown] Montelukast [Singular] 10 mg PO DAILY 09/06/19 [History Confirmed 09/07/19 Last Taken Unknown] Omeprazole [Prilosec] 20 mg PO DAILY PRN 09/06/19 [History Confirmed 09/07/19 Last Taken Unknown] sitaGLIPtin PHOS/metFORMIN HCL [Janumet Xr 50-500 mg Tablet] 1 each PO QDAY 09/06/19 [History Confirmed 09/07/19 Last Taken Unknown] traMADol [Ultram] 50 mg PO Q6HP PRN #10 tab 09/06/19 [Rx Confirmed 09/07/19 Last Taken Unknown] traZODone HCL [Trazodone HCl] 100 mg PO PRN PRN 09/06/19 [History Confirmed 09/07/19 Last Taken Unknown] Vitamin D3 1 tab PO QDAY 09/07/19 [History Confirmed 09/07/19 Last Taken Unknown] amLODIPine [Norvasc] 7.5 mg PO DAILY #30 tab 09/14/19 [Rx Last Taken Unknown] Medical - DS: Hosp Hospital Course: This is an 79-year-old female admitted with acute pancreatitis possibly precipitated by alcohol and/or her medications. She was kept on n.p.o. and advance her to clear liquid diet her pain is controlled with the Dilaudid IV electrolytes has been monitored IV fluid resuscitation with LR 09/08-patient's case scenario has been discussed with the family son and explained to them about the possible delayed complication and's recurrence of pancreatitis. I strongly recommend them to stop Januvia and we can continue the Metformin alone as her A1c is 6.6. I strongly recommend stop celecoxib as well. Patient is on estradiol which can rarely cause pancreatitis but this can be reconsidered when she is improved 09/09 -she continued having pain especially when she ate so we will keep her on full liquid diet and continue IV pain medicine and will start her on tramadol 50 every 8 hourly. Starting her on sliding scale insulin 09/10-patient continued having pain requiring IV pain medicine. We continue tramadol and Dilaudid as needed. Discussed with the patient and family and decided to continue full liquid diet and will keep her another day if she continues to improve then can be discharged tomorrow. Physical therapy evaluation before discharge. 09/11 This afternoon, patient blood pressure went up this afternoon. For which hydralazine 10 mg IV was given. Short while after hydralazine was given, patient heart rate went up to 180. A rapid response was called. EKG showed sinus tachycardia and left anterior fascicular block. She was given Benadryl 25 mg IV once. Metoprolol 2.5 milligrams IV x 2. Her heart rate gradually went down to around 90. Repeat EKG left anterior fascicular block this. Troponin 0 0.01, TSH 6.48, d-dimer 6.35 CT angios chest and free T4/free T3 were ordered It was reported and patient is confused today. CT of head negative. Her urine looks cloudy. UA and blood culture was sent. Considering confusion, ceftriaxone was started. Gentle IV fluid. 09/12 Today her heart rate is stable and acceptable. Blood pressure still high. She complains of more abdominal pain. I advised her not to take solid food and to stay on clear oral full liquid. 09/13 Today she is feeling better, less abdominal pain. Denies nausea, vomiting, or diarrhea. I advised her to continue to stay on clear/full liquid, no solid food. her heart rate is normal. Blood pressure still high. Labs pending 09/14 Continues to feel better. Abdominal pain much improved. Tolerating full liquid diet. No new complaints. 09/15 Doing well. Continues to feel better and tolerating diet and able to go home. Discharge diagnosis: Pancreatitis suspect alcohol hypertension diabetes hypothyroidism - Time Spent with Patient Total time spent providing and/or coordinating discharge services: Greater than 30 minutes Medical - DS: Exam - Constitutional Vitals: Vital Signs Temp Pulse Resp BP BP Pulse Ox 09/14/19 09:36 18 09/14/19 07:17 97.4 F 85 18 140/80 99 09/14/19 04:00 97.8 F 79 16 153/75 97 09/14/19 00:00 97.9 F 85 20 147/75 95 09/13/19 19:17 98.3 F 81 18 142/71 96 09/13/19 15:56 98.9 F 78 16 158/78 97 Intake and Output 09/13/19 09/14/19 09/14/19 21:59 05:59 13:59 Intake Total 240 360 Output Total 750 200 Balance -510 -200 360 Intake: Oral 240 360 Output: Void Amount 750 200 Other: Meal Dinner Breakfast Percent of Meal Consumed 25% 75% Feeding Ability Assist with Tray Set Up Urine Appearance Clear Clear Urine Color Dark Yellow Bright Yellow Urine Odor Strong # Voids 1 Weight 68.719 kg 68.719 kg Patient Weight 09/15/19 05:59 Weight 68.719 kg Medical - DS: Data Labs on day of discharge: Labs from last 24 hours 09/14/19 03:58 Sodium 133 Potassium 3.8 Chloride 96 Carbon Dioxide 26 Anion Gap 11.0 BUN 10 Creatinine 0.5 L GFR Calculation 91 Glucose 142 H Uric Acid 2.0 L Calcium 8.5 L Phosphorus 4.3 Magnesium 1.8 Total Bilirubin 0.6 Direct Bilirubin < 0.2 GGT 29 AST 40 H ALT 25 Alkaline Phosphatase 119 H Lactate Dehydrogenase 225 Total Protein 6.7 Albumin 3.0 L Globulin 3.7 Albumin/Globulin Ratio 0.8 L Triglycerides 101 Preliminary micro results at discharge 09/11/19 21:38 Blood Culture - Preliminary Blood 09/11/19 21:44 Blood Culture - Preliminary Blood Medical - DS: A/P - Patient/Caregiver Discharge Instructions Diet: Low Fat, Low Fiber (no alcholol) Additional Instructions: Follow-up with PCP regarding thyroid function tests follow-up Prescriptions: amLODIPine [Norvasc] 7.5 mg PO DAILY #30 tab Metoprolol Succinate [Toprol Xl] 12.5 mg PO DAILY #30 tab.xl.24h - Follow up Plan Follow up with: Rakan Pham MD [Primary Care Provider] - Disposition: Xfer SNF Prognosis: Fair Rehab Potential: Fair I certify that the patient requires SNF services: Yes Overall status at discharge: patient is progressing back to baseline
[2019-09-14] MEDS: SENNOSIDES 1 TABLET PO SCH (20:56)
[2019-09-15] MEDS: traMADol 50 MG TABLET PO SCH ×2 (03:10→10:32)
[2019-09-15] MEDS: 0.9 % SODIUM CHLORIDE 10 ML SYRINGE IV SCH (05:18)
[2019-09-15] MEDS: INSULIN LISPRO 1 UNIT/0.01 ML UNIT SQ SCH (07:40)
[2019-09-15] MEDS ORDERED: amLODIPine 5 MG TABLET PO SCH (09:00)
[2019-09-15] MEDS: ESCITALOPRAM 20 MG TABLET PO SCH (10:09)
[2019-09-15] MEDS: METOPROLOL SUCCINATE 25 MG TAB.XL.24H PO SCH (10:10)
[2019-09-15] MEDS: MONTELUKAST 10 MG TABLET PO SCH (10:10)
[2019-09-15] MEDS: POTASSIUM CHLORIDE 10 MEQ TABLET PO SCH (10:11)
[2019-09-15] MEDS: ENOXAPARIN 40 MG/0.4 ML SYRINGE SQ SCH (10:11)
[2019-09-15] MEDS: ASPIRIN 81 MG TAB.CHEW PO SCH (10:11)
[2019-09-15] MEDS: ATORVASTATIN 20 MG TABLET PO SCH (10:11)
[2019-09-15] MEDS: DOCUSATE SODIUM 100 MG CAPSULE PO SCH (10:12)
[2019-09-15] MEDS: LEVOTHYROXINE 100 MCG TABLET PO SCH (10:33)
== END 2019-09-15 11:31 | DRG 440 ==
LOC: ED 16:29 → MEDSUR 22:11 → ICU 09-11 18:05 → MEDSUR 09-14 08:42
PROVIDERS: ADMIT Internal Medicine; ATTEND Internal Medicine